=== PATIENT | female | born 1965 | race Caucasian/White ===

== ENCOUNTER → 2018-02-02 16:35 | Outpatient (CLI) | payer OTHER, SELFPAY ==
[2018-02-02 18:27] LABS: Anion Gap 6 (5-15); BUN 17 mg/dL (7-18); Calcium,Total 8.5 mg/dL (8.5-10.1); Chloride 105 mmol/L (98-107); EST Glomerular Filtration Rate 62 mL/min (>60); Est Glom Filt Rate - Afr Amer 75 mL/min (>60); Glucose 90 mg/dL (74-106); Potassium 3.6 mmol/L (3.5-5.1); Sodium Level 140 mmol/L (136-145)
== END ==
PROVIDERS: Family Provider Family Medicine; PCP Family Medicine; Visit Provider Family Medicine
DX: I10 Essential (primary) hypertension (principal)
CPT/HCPCS: 36415; 80048

== ENCOUNTER → 2018-05-10 16:10 | Outpatient (CLI) | payer OTHER, SELFPAY ==
[2018-05-10 18:01] LABS: AST(SGOT) 43 U/L (15-37); Alanine Aminotransfer ALT/SGPT 51 U/L (13-56); Anion Gap 8 (5-15); BUN 14 mg/dL (7-18); BUN/Creat Ratio 14.1 RATIO (10-20); Calcium,Total 8.6 mg/dL (8.5-10.1); Chloride 103 mmol/L (98-107); Cholesterol 153 mg/dL (200); Creatinine, Serum 0.99 mg/dL (0.55-1.02); EST Glomerular Filtration Rate 62 mL/min (>60); Est Glom Filt Rate - Afr Amer 75 mL/min (>60); Glucose 91 mg/dL (74-106); High Density Lipoprotein 42 mg/dL; Potassium 3.7 mmol/L (3.5-5.1); Sodium Level 141 mmol/L (136-145); Triglycerides 210 mg/dL; Very Low Density Lipoprotein 42 mg/dL (5-40)
[2018-05-14 11:39] LABS: HPV Reflexed? NOT INDICATED
== END ==
PROVIDERS: Family Provider Family Medicine; PCP Family Medicine; Visit Provider Family Medicine
DX: Z12.4 Encounter for screening for malignant neoplasm of cervix (principal); I10 Essential (primary) hypertension; E78.5 Hyperlipidemia, unspecified
CPT/HCPCS: 36415; 80048; 80061; 84450; 84460; 88175; G0145

== ENCOUNTER → 2018-05-29 09:38 | Outpatient (CLI) | payer OTHER, SELFPAY | PROVIDERS: Family Provider Family Medicine; PCP Family Medicine; Visit Provider Family Medicine | DX: Z12.31 Encounter for screening mammogram for malignant neoplasm of breast (principal) | CPT/HCPCS: 77063; 77067 ==

== ENCOUNTER → 2018-11-09 15:39 | Outpatient (CLI) | payer OTHER, SELFPAY ==
[2018-11-09 17:42] LABS: Anion Gap 11 (5-15); BUN 17 mg/dL (7-18); BUN/Creat Ratio 17.8 RATIO (10-20); Calcium,Total 8.7 mg/dL (8.5-10.1); Chloride 103 mmol/L (98-107); Creatinine, Serum 0.96 mg/dL (0.55-1.02); EST Glomerular Filtration Rate 65 mL/min (>60); Est Glom Filt Rate - Afr Amer 78 mL/min (>60); Glucose 86 mg/dL (74-106); Sodium Level 140 mmol/L (136-145)
== END ==
PROVIDERS: Family Provider Family Medicine; PCP Family Medicine; Visit Provider Family Medicine
DX: I10 Essential (primary) hypertension (principal)
CPT/HCPCS: 36415; 80048

== ENCOUNTER → 2019-05-11 | Outpatient (CLI) | payer OTHER, SELFPAY ==
[2019-05-11 12:48] LABS: AST(SGOT) 27 U/L (15-37); Alanine Aminotransfer ALT/SGPT 32 U/L (13-56); Anion Gap 6 (5-15); BUN 24 mg/dL (7-18); BUN/Creat Ratio 21.1 RATIO (10-20); Chloride 107 mmol/L (98-107); Cholesterol 167 mg/dL (200); Creatinine, Serum 1.14 mg/dL (0.55-1.02); EST Glomerular Filtration Rate 53 mL/min (>60); Est Glom Filt Rate - Afr Amer 64 mL/min (>60); Glucose 103 mg/dL (74-106); High Density Lipoprotein 41 mg/dL; Potassium 4.2 mmol/L (3.5-5.1); Sodium Level 141 mmol/L (136-145); Triglycerides 224 mg/dL; Very Low Density Lipoprotein 45 mg/dL (5-40)
== END | disposition home or self-care (01) ==
LOC: MFPLAB 10:02
PROVIDERS: Family Provider Family Medicine; PCP Family Medicine; Referring Provider Family Medicine; Visit Provider Family Medicine
DX: I10 Essential (primary) hypertension (principal); E78.00 Pure hypercholesterolemia, unspecified
CPT/HCPCS: 36415; 80048; 80061; 84450; 84460

== ENCOUNTER → 2020-04-10 11:58 | Outpatient (CLI) | payer OTHER, SELFPAY ==
[2020-04-10 15:35] LABS: AST(SGOT) 33 U/L (15-37); Alanine Aminotransfer ALT/SGPT 48 U/L (13-56); Anion Gap 6 (5-15); BUN 28 mg/dL (7-18); BUN/Creat Ratio 24.3 RATIO (10-20); Calcium,Total 8.7 mg/dL (8.5-10.1); Chloride 102 mmol/L (98-107); Cholesterol 174 mg/dL (200); Creatinine, Serum 1.15 mg/dL (0.55-1.02); EST Glomerular Filtration Rate 52 mL/min (>60); Est Glom Filt Rate - Afr Amer 63 mL/min (>60); Glucose 103 mg/dL (74-106); High Density Lipoprotein 38 mg/dL; Potassium 4.3 mmol/L (3.5-5.1); Sodium Level 138 mmol/L (136-145); Triglycerides 371 mg/dL; Very Low Density Lipoprotein 74 mg/dL (5-40)
== END ==
PROVIDERS: PCP Family Medicine; Referring Provider Family Medicine; Visit Provider Family Medicine
DX: E78.00 Pure hypercholesterolemia, unspecified (principal); I10 Essential (primary) hypertension
CPT/HCPCS: 36415; 80048; 80061; 84450; 84460

== ENCOUNTER → 2020-04-11 07:05 | Outpatient (CLI) | payer OTHER, SELFPAY ==
--- NOTE | 2020-04-11 07:07 | BI_ITS ---
MAMMOGRAPHY - BILATERAL SCREENING REASON FOR EXAM: Female, 55 years old. Routine annual screening examination. PERTINENT HISTORY: Aunts with breast cancer. TECHNIQUE: Digital bilateral breast jane (3D mammographic acquisition) in the CC and MLO projections. 2-D mediolateral oblique (MLO) and craniocaudad (CC) views of both breasts were obtained. CAD: Full Field Digital Mammography with Computer Added Detection was performed. COMPARISON: Comparison is made with prior study dated May 29, 2018. FINDINGS: Breast Composition: There are scattered areas of fibroglandular density. There are no dominant masses or suspicious calcifications. No other significant abnormalities are identified. There has been no significant change since the prior study. BI/SCREEN MAMM (CAD) W/JANE BILAT IMPRESSION: Stable bilateral screening mammogram. Yearly follow-up mammogram recommended. (A) ASSESSMENT CATEGORY: BIRADS Category 2: Benign. A letter regarding these results will be sent to the patient by the facility within 30 days. Approximately 10% of breast cancers are not detected by mammography. A normal mammogram should not delay biopsy of a clinically suspicious abnormality. [id number] Electronically Signed: Hadley Stapleton, at 8:33 EDT , Service support ,
== END ==
PROVIDERS: PCP Family Medicine; Referring Provider Family Medicine; Visit Provider Family Medicine
DX: Z12.31 Encounter for screening mammogram for malignant neoplasm of breast (principal)
CPT/HCPCS: 77063; 77067

== ENCOUNTER → 2020-10-15 10:07 | Outpatient (CLI) | payer OTHER, SELFPAY ==
[2020-10-15 12:55] LABS: Anion Gap 7 (5-15); BUN 21 mg/dL (7-18); BUN/Creat Ratio 20.8 RATIO (10-20); Calcium,Total 8.7 mg/dL (8.5-10.1); Chloride 107 mmol/L (98-107); Creatinine, Serum 1.01 mg/dL (0.55-1.02); EST Glomerular Filtration Rate 60 mL/min (>60); Est Glom Filt Rate - Afr Amer 73 mL/min (>60); Glucose 92 mg/dL (74-106); Potassium 3.7 mmol/L (3.5-5.1); Sodium Level 141 mmol/L (136-145)
== END ==
PROVIDERS: PCP Family Medicine; Referring Provider Family Medicine; Visit Provider Family Medicine
DX: I10 Essential (primary) hypertension (principal)
CPT/HCPCS: 36415; 80048

== ENCOUNTER → 2021-05-02 07:54 | Outpatient (CLI) | payer OTHER, SELFPAY ==
--- NOTE | 2021-05-02 07:58 | BI_ITS ---
MAMMOGRAPHY - BILATERAL SCREENING REASON FOR EXAM: Female, 56 years old. Routine annual screening examination. PERTINENT HISTORY: Aunts with breast cancer. TECHNIQUE: Digital bilateral breast jane (3D mammographic acquisition) in the CC and MLO projections. 2-D mediolateral oblique (MLO) and craniocaudad (CC) views of both breasts were obtained. CAD: Full Field Digital Mammography with Computer Added Detection was performed. COMPARISON: Comparison is made with prior study dated 04/11/2020 and 05/29/2018. FINDINGS: Breast Composition: The breasts are almost entirely fatty. There are no dominant masses or suspicious calcifications. Stable small benign-appearing bilateral axillary lymph nodes. No other significant abnormalities are identified. There has been no significant change since the prior study. BI/SCRN MAMM (CAD)W/JANE BILAT IMPRESSION: Stable bilateral screening mammogram. Yearly follow-up mammogram recommended. (A) ASSESSMENT CATEGORY: BIRADS Category 2: Benign. A letter regarding these results will be sent to the patient by the facility within 30 days. Approximately 10% of breast cancers are not detected by mammography. A normal mammogram should not delay biopsy of a clinically suspicious abnormality. [id number] Electronically Signed: Hadley Stapleton MD at 9:06 EDT , Service support ,
--- NOTE | 2021-05-02 08:18 | BD_ITS ---
STUDY: DUAL ENERGY X-RAY ABSORPTIOMETRY / DXA REASON FOR EXAM: Female, 56 years old. [id number]. The patient is postmenopausal. TECHNIQUE: Bone Mineral Density (BMD) measurements of lumbar spine and bilateral hips were obtained. COMPARISON: None. FINDINGS: Lumbar Spine (L1-L4): g/cm2 (1.050) / T-score (0.0) / Z-score (1.2) Findings are suggestive of normal bone density with a low fracture risk. Left Femur Total: g/cm2 (1.022) / T-score (0.7) / Z-score (1.4) Left Femoral Neck: g/cm2 (0.813) / T-score (-0.3) / Z-score (0.8) Right Femur Total: g/cm2 (1.081) / T-score (1.1) / Z-score (1.9) Right Femoral Neck: g/cm2 (0.789) / T-score (-0.5) / Z-score (0.6) BD/Dexa Bone Density Study IMPRESSION: The patient is considered normal as outlined below according to World Holden Organization (WHO) criteria with a low fracture risk. Reference Information: The T-score is the number of standard deviations above or below the standard which is normal for young adults at their peak bone mineral density. The World Health Organization (WHO) interprets the T-scores as follows: Above -1 Normal bone density Between -1 and -2.5 Osteopenia Equal to / or below -2.5 Osteoporosis As a practical clinical guideline, osteopenia may be graded as follows: Mild -1 through -1.5 Moderate -1.6 through -2.0 Severe -2.1 through -2.4 The Z-score is the number of standard deviations above or below age-matched controls. A Z-score of less than -1.5 would be considered abnormal. References: 1. NIH Osteoporosis and Related Bone Diseases www osteo.org 2. International Society for Clinical Densitometry www iscd.org 3. National Osteoporosis Foundation www nof.org Electronically Signed: Hadley Stapleton MD at 14:02 EDT , Service support ,
== END ==
PROVIDERS: PCP Family Medicine; Referring Provider Family Medicine; Visit Provider Family Medicine
DX: Z12.31 Encounter for screening mammogram for malignant neoplasm of breast (principal); N95.9 Unspecified menopausal and perimenopausal disorder
CPT/HCPCS: 77063; 77067; 77080

== ENCOUNTER → 2021-07-17 08:35 | Outpatient (CLI) | payer OTHER, SELFPAY ==
--- NOTE | 2021-07-17 12:45 | LES_PTH ---
PATIENT: SAAD ZAMBRANO LOC: [facility] U#:[id number] AGE/SX: 60/F ROOM: RE07/17/[address]: Dr. Natty Armas MD : 1965 BED: DIS: SPEC #: [id number] RECD: 07/17/21 18:03 STATUS: JIM LUIS #: [id number] QING: 07/17/21 12:[address]: Natty Armas DEPT: SURGICAL PATHOLOGY RECD BY: Pallavi aSnchez Tissues: Skin of back, NOS Procedures: Surgery Specimen Level IV HEADER OPERATION: Skin lesion biopsy PRE-OP DIAGNOSIS: Skin lesion TISSUE SUBMITTED: Skin lesion from right back MICROSCOPIC DIAGNOSIS Skin lesion right back, biopsy: Consistent with fragments of inflamed benign verrucous keratosis. Negative for malignancy. See comment. FELECIA:joselito 07/19/2021 COMMENT Clinical correlation and appropriate follow up are necessary. MICROSCOPIC DESCRIPTION Slides are reviewed. GROSS DESCRIPTION Received is one container labeled with the patient's name and not further designated. The specimen consists of two pieces of christiansen-white to christiansen-brown skin measuring 0.6 x 0.3 x 0.2 and 0.3 x 0.3 x 0.2 cm. The entire specimen is submitted in one cassette. / SJ:rg 07/18/21 TC:5 [facility]: [id number]
== END ==
PROVIDERS: PCP Family Medicine; Visit Provider Family Medicine
DX: L98.9 Disorder of the skin and subcutaneous tissue, unspecified (principal)
CPT/HCPCS: 88305

== ENCOUNTER 2021-11-23 09:24 | Outpatient (CLI) | payer OTHER, SELFPAY ==
--- NOTE | 2021-11-23 09:31 | US_ITS ---
STUDY: ULTRASOUND TRANSVAGINAL CLINICAL: Female, 56 years old. Postmenopausal bleeding. TECHNIQUE: Transvaginal COMPARISON: None. FINDINGS: The uterus is anteverted measuring about 8.9 x 4.5 x 3.5 cm and is tilted to the left side. There are no myometrial masses. There is thickening of the endometrium for a postmenopausal bleeding patient measuring about 11 mm. There is a hypoechoic area within the endometrium measures about 7 mm which may represent polyp. There are no endometrial masses, and there is no fluid in the endometrial cavity. Nabothian cyst is seen in the cervix. Both ovaries are not visualized. There is minimal free fluid in the cul-de-sac. US/Transvaginal Non- IMPRESSION: 1. Abnormal thickening of the endometrium for a postmenopausal bleeding patient with questionable hypoechoic nodule. [employer] consult is recommended. 2. Nonvisualization of both ovaries. 3. Nabothian cyst in the cervix. Electronically Signed: Devon Magallanes, at 10:17 [facility] ,
== END 2021-11-23 23:59 | disposition home or self-care (01) ==
PROVIDERS: PCP Family Medicine; Visit Provider Family Medicine
DX: N95.0 Postmenopausal bleeding (principal)
CPT/HCPCS: 76830

== ENCOUNTER 2021-12-24 09:40 | Outpatient (CLI) | payer OTHER, SELFPAY ==
--- NOTE | 2021-12-24 | EMB_PTH ---
PATIENT: SAAD ZAMBRANO LOC: [facility] U#:[id number] AGE/SX: 56/F ROOM: RE12/24/[address]: Dr. Eliecer Lemon MD : 1965 BED: DIS: 12/24/2021 SPEC #: [id number] RECD: 12/24/21 10:49 STATUS: JIM RERenzo #: [id number] QING: 12/24/21 00:[address]: Eliecer Lemon DEPT: SURGICAL PATHOLOGY RECD BY: Pallavi Sanchez ENTERED: 12/24/21 11:05 SP TYPE: ENDOM BX/C CHARLA DR: Dr. Natty Armas MD Tissues: Endometrium, NOS Procedures: Surgery Specimen Level IV HEADER OPERATION: Endometrial biopsy PRE-OP DIAGNOSIS: Postmenopausal bleeding TISSUE SUBMITTED: Endometrial biopsy MICROSCOPIC DIAGNOSIS Endometrium, biopsy: Endometrial adenocarcinoma, endometrioid type, FIGO grade I. AM:joselito 12/25/2021 COMMENT Immunohistochemistry ([id number]) for microsatellite instability (mismatch repair of protein) will be performed and the results will be reported separately. Case has been reviewed in consultation with Dr. Charles who concurs with the above diagnosis. IDC:SJ MICROSCOPIC DESCRIPTION Slides are reviewed. GROSS DESCRIPTION Received in fixative is one container labeled with the patient's name and designated endometrial biopsy. The specimen consists of multiple fragments of pink hemorrhagic soft tissue that in aggregate measure 2.5 x 2 x 0.2 cm. The specimen is totally submitted in one cassette. / FELECIA:joselito 12/24/2021 TC:0 CPT: 05606
--- NOTE | 2021-12-24 | IMM_PTH ---
PATIENT: SAAD ZAMBRANO LOC: [facility] U#:[id number] AGE/SX: 56/F ROOM: RE12/24/[address]: Dr. Eliecer Lemon MD : 1965 BED: DIS: 12/24/2021 SPEC #: [id number] RECD: 12/26/21 14:26 STATUS: JIM REQ #: [id number] QING: 12/24/21 00:[address]: Eliecer Lemon DEPT: IMMUNOHISTOCHEMISTRY RECD BY: Rosemarie Roche ENTERED: 12/26/21 14:27 SP TYPE: IMMUNO OTHR DR: Dr. Natty Armas MD Tissues: Endometrium, NOS Procedures: MSH2 (add) MLH-1 (add) MSH6 (add) Anti-PMS2 (add) KI-67 (add) P53 (add) HER-2-GWENDOLYN (initial) PHYSICIAN & INSTITUTION [place] [id number] SPECIMEN INFORMATION: Tissue Source: Endometrial biopsy Clinical Info: Postmenopausal bleeding Specimen Number: [id number] CPT code: 15325, 41907 x6 METHODOLOGY: Deparaffinized sections of prefer/formalin-fixed tissue or PAP/DQ stained slides are incubated with monoclonal/polyclonal antibodies/oligonucleotide probes. Localization is made via biotin free immunoperoxidase method. Appropriate controls are performed and reacted as expected. Results on target cell population are indicated in the following table: RESULTS: ANTIBODY / CLONE RESULT Ki-67 (30-9) positive, moderate to high P53 (DO-7) positive, rare cells, weak MLH-1 (M1) positive MSH2 (25D12) positive MSH6 (44) positive PMS2 (BWG5329) positive Her-2neu (CB11) negative (0) These tests were developed and their performance characteristics determined by [facility]. They may not have been cleared or approved by the U.S. Food and Drug Administration. The FDA has determined that such clearance or approval is not necessary. The above immunohistochemical/dualISH markers are ordered and reviewed by the Pathologist. INTERPRETATION: Endometrial biopsy: Endometrial adenocarcinoma. Result of Microsatellite Instability Study: Negative (no loss of mismatch protein; no microsatellite instability detected). FELECIA:joselito 12/27/2021
== END 2021-12-24 23:59 | disposition home or self-care (01) ==
LOC: WOBLAB 09:40
PROVIDERS: PCP Family Medicine; Visit Provider Obstetrics & Gynecology
DX: C54.1 Malignant neoplasm of endometrium (principal)
CPT/HCPCS: 88305; 88341; 88342

== ENCOUNTER 2022-01-01 11:34 | Outpatient (CLI) | payer OTHER, SELFPAY ==
[2022-01-01 15:38] LABS: AST(SGOT) 25 U/L (15-37); Alanine Aminotransfer ALT/SGPT 30 U/L (13-56); Anion Gap 5 (5-15); BUN 20 mg/dL (7-18); BUN/Creat Ratio 22.7 RATIO (10-20); Calcium,Total 9.2 mg/dL (8.5-10.1); Chloride 106 mmol/L (98-107); Cholesterol 180 mg/dL (200); Creatinine, Serum 0.88 mg/dL (0.55-1.02); EST Glomerular Filtration Rate 70 mL/min (>60); Est Glom Filt Rate - Afr Amer 85 mL/min (>60); Glucose 85 mg/dL (74-106); High Density Lipoprotein 46 mg/dL; Potassium 4.5 mmol/L (3.5-5.1); Sodium Level 139 mmol/L (136-145); Triglycerides 250 mg/dL; Very Low Density Lipoprotein 50 mg/dL (5-40)
== END 2022-01-01 23:59 | disposition home or self-care (01) ==
LOC: MFPLAB 11:35
PROVIDERS: PCP Family Medicine; Referring Provider Family Medicine; Visit Provider Family Medicine
DX: E78.00 Pure hypercholesterolemia, unspecified (principal); I10 Essential (primary) hypertension
CPT/HCPCS: 36415; 80048; 80061; 84450; 84460

== ENCOUNTER → 2022-06-30 | Outpatient (CLI) | payer OTHER, SELFPAY ==
[2022-06-30 17:47] LABS: Absolute Neutrophil Count 3.3 X10^3/uL (2.0-7.7); Basophil# 0.04 X10^3/uL; Basophil% 0.7 % (0-1); Eosinophil# 0.24 X10^3/uL; Eosinophils% 3.9 % (0-5); Hematocrit 34.8 % (37-47); Hemoglobin 11.1 g/dL (12.0-15.0); Lymphocyte % 32.6 % (19-41); Mean Corp Hgb Conc 31.9 g/dL (32-36); Mean Corpuscular Hgb 28.6 pg (27.0-32.0); Mean Corpuscular Volume 89.7 fL (81-99); Mean Platelet Vol. 9.5 fl (6.2-12.0); Monocyte# 0.51 X10^3/uL; Monocyte% 8.3 % (0-10); NRBC Flagged by Analyzer 0 % (0-5); Neutrophil # 3.33 X10^3/uL (2.7-7.7); Neutrophil % 54.2 % (47-70); Platelet Count 300 K/mm3 (150-450); RBC Distribution Width CV 16.2 % (11.6-14.6); RBC Distribution Width SD 53.5 fl (35.1-43.9); Red Blood Count 3.88 M/mm3 (4.2-5.4); White Blood Count 6.1 K/mm3 (4.4-11.0)
[2022-06-30 18:17] LABS: Microalbumin,Random Urine 5.4 mg/L (NO RANGE EST.); Microalbumin:Creatinine Ratio 9.9 mg/g CRE (<30 mg/g CRE)
[2022-06-30 18:30] LABS: Anion Gap 9 (5-15); BUN 15 mg/dL (7-18); Calcium,Total 9.3 mg/dL (8.5-10.1); Chloride 103 mmol/L (98-107); Cholesterol 166 mg/dL (200); EST Glomerular Filtration Rate 61 mL/min (>60); Est Glom Filt Rate - Afr Amer 74 mL/min (>60); Glucose 97 mg/dL (74-106); High Density Lipoprotein 47 mg/dL; Iron 73 ug/dL (50-170); Potassium 4.2 mmol/L (3.5-5.1); Sodium Level 139 mmol/L (136-145); Thyroid Stim Hormone (TSH) 2.57 uIU/mL (0.358-3.74); Triglycerides 223 mg/dL; Very Low Density Lipoprotein 45 mg/dL (5-40)
== END | disposition home or self-care (01) ==
LOC: MFPLAB 16:36
PROVIDERS: PCP Family Medicine; Referring Provider Family Medicine; Visit Provider Family Medicine
DX: D64.9 Anemia, unspecified (principal); R53.83 Other fatigue; I10 Essential (primary) hypertension
CPT/HCPCS: 36415; 80048; 80061; 82043; 82570; 83540; 84443; 85025

== ENCOUNTER → 2022-07-17 | Outpatient (CLI) | payer OTHER, SELFPAY ==
--- NOTE | 2022-07-17 07:10 | BI_ITS ---
MAMMOGRAPHY - BILATERAL SCREENING REASON FOR EXAM: Female, 57 years old. Routine annual screening examination. PERTINENT HISTORY: Aunts with breast cancer. TECHNIQUE: Digital bilateral breast jane (3D mammographic acquisition) in the CC and MLO projections. 2-D mediolateral oblique (MLO) and craniocaudad (CC) views of both breasts were obtained. CAD: Full Field Digital Mammography with Computer Added Detection was performed. COMPARISON: Comparison is made with prior study dated 05/02/2021 and 04/11/2020. FINDINGS: Breast Composition: The breasts are almost entirely fatty. There are no dominant masses or suspicious calcifications. No other significant abnormalities are identified. There has been no significant change since the prior study. BI/SCRN MAMM (CAD)W/JANE BILAT IMPRESSION: Stable bilateral screening mammogram. Yearly follow-up mammogram recommended. (A) ASSESSMENT CATEGORY: BIRADS Category 1: Negative. A letter regarding these results will be sent to the patient by the facility within 30 days. Approximately 10% of breast cancers are not detected by mammography. A normal mammogram should not delay biopsy of a clinically suspicious abnormality. [id number] Electronically Signed: Haldey Stapleton MD at 8:25 EDT ,
== END | disposition home or self-care (01) ==
PROVIDERS: PCP Family Medicine; Visit Provider Obstetrics & Gynecology
DX: Z12.31 Encounter for screening mammogram for malignant neoplasm of breast (principal); Z80.3 Family history of malignant neoplasm of breast
CPT/HCPCS: 77063; 77067

== ENCOUNTER → 2023-06-29 | Outpatient (CLI) | payer OTHER, SELFPAY ==
[2023-06-29 18:07] LABS: AST(SGOT) 21 U/L (15-37); Alanine Aminotransfer ALT/SGPT 25 U/L (13-56); Anion Gap 4 (5-15); BUN 21 mg/dL (7-18); BUN/Creat Ratio 19.6 RATIO (10-20); Calcium,Total 8.9 mg/dL (8.5-10.1); Chloride 104 mmol/L (98-107); Cholesterol 138 mg/dL (200); Creatinine, Serum 1.07 mg/dL (0.55-1.02); EST Glomerular Filtration Rate 56 mL/min (>60); Est Glom Filt Rate - Afr Amer 68 mL/min (>60); Glucose 98 mg/dL (74-106); High Density Lipoprotein 43 mg/dL; Potassium 3.9 mmol/L (3.5-5.1); Sodium Level 138 mmol/L (136-145); Triglycerides 263 mg/dL; Very Low Density Lipoprotein 53 mg/dL (5-40)
== END | disposition home or self-care (01) ==
PROVIDERS: PCP Family Medicine; Referring Provider Family Medicine; Visit Provider Family Medicine
DX: I10 Essential (primary) hypertension (principal); E78.00 Pure hypercholesterolemia, unspecified
CPT/HCPCS: 36415; 80048; 80061; 84450; 84460

== ENCOUNTER → 2024-02-11 | Outpatient (CLI) | payer BC, SELFPAY ==
--- NOTE | 2024-02-11 14:54 | CT_ITS ---
STUDY: CT ABDOMEN WITH CONTRAST REASON FOR EXAM: Female, 59 years old. Epigastric fullness. RADIATION DOSAGE (If Supplied By Facility): CTDIvol = ( 15.78 ) mGy, DLP = ( 869.62 ) mGycm TECHNIQUE: Transaxial images were obtained post I.V. administration of Oral and amp; IV Redi-CAT and amp; 100mL Isovue-300, and oral contrast. Sagittal and coronal images were reconstructed. Individualized dose optimization techniques were used for this CT. COMPARISON: None. FINDINGS: The visualized lung bases are unremarkable. The visualized portions of the heart are within normal limits. Normal liver. There is a 2 cm x 2.2 cm solitary gallstone in the contracted gallbladder. Normal spleen. Normal pancreas. Normal bilateral adrenal glands. Normal right kidney. Normal left kidney. There is a small hiatal hernia. Normal small intestine. Normal colon. The appendix is visualized and appears normal. Normal abdominal aorta. Normal inferior vena cava. Normal retroperitoneum. The patient is status post hysterectomy. There is evidence of a midline ventral hernia at the level of the umbilicus. This contains a nondistended portion of the transverse colon. Spondylosis at the T10-T11 and T11-T12 level. CT/Abdomen WITH IV Contrast IMPRESSION: Midline ventral hernia at the level the umbilicus containing a nondistended portion of the transverse colon. 2 cm x 2.2 cm solitary gallstone in the contracted gallbladder. Electronically Signed: Hadley Stapleton MD at 11:09 EDT ,
[2024-02-11 15:30] LABS: CREATININE FINGERSTICK 1.1 mg/dL (0.55-1.02)
== END | disposition home or self-care (01) ==
LOC: CT 14:48
PROVIDERS: PCP Family Medicine; Referring Provider Family Medicine; Visit Provider Family Medicine
DX: R19.06 Epigastric swelling, mass or lump (principal)
CPT/HCPCS: 74160; Q9967

== ENCOUNTER → 2024-03-09 | Outpatient (CLI) | payer BC, SELFPAY ==
--- NOTE | 2024-03-09 07:42 | BI_ITS ---
MAMMOGRAPHY - BILATERAL SCREENING REASON FOR EXAM: Female, 59 years old. Routine annual screening examination. PERTINENT HISTORY: Aunts with breast cancer. TECHNIQUE: Digital bilateral breast jane (3D mammographic acquisition) in the CC and MLO projections. 2-D mediolateral oblique (MLO) and craniocaudad (CC) views of both breasts were obtained. CAD: Full Field Digital Mammography with Computer Added Detection was performed. COMPARISON: Comparison is made with prior study July 17, 2022 and May 02, 2021. FINDINGS: Breast Composition: The breasts are almost entirely fatty. There are no dominant masses or suspicious calcifications. No other significant abnormalities are identified. There has been no significant change since the prior study. BI/SCRN MAMM (CAD)W/JANE BILAT IMPRESSION: Stable bilateral screening mammogram. Yearly follow-up mammogram recommended. (A) ASSESSMENT CATEGORY: BIRADS Category 1: Negative. A letter regarding these results will be sent to the patient by the facility within 30 days. Approximately 10% of breast cancers are not detected by mammography. A normal mammogram should not delay biopsy of a clinically suspicious abnormality. [id number] Electronically Signed: Hadley Stapleton MD at 8:51 EDT ,
== END | disposition home or self-care (01) ==
PROVIDERS: PCP Family Medicine
DX: Z12.31 Encounter for screening mammogram for malignant neoplasm of breast (principal); Z80.3 Family history of malignant neoplasm of breast
CPT/HCPCS: 77063; 77067

== ENCOUNTER → 2024-08-02 | Outpatient (CLI) | payer BC, SELFPAY ==
[2024-08-02 18:53] LABS: AST(SGOT) 22 U/L (15-37); Alanine Aminotransfer ALT/SGPT 24 U/L (13-56); Anion Gap 5 (5-15); BUN 20 mg/dL (7-18); BUN/Creat Ratio 20.7 RATIO (10-20); Calcium,Total 9.4 mg/dL (8.5-10.1); Chloride 103 mmol/L (98-107); Cholesterol 183 mg/dL (200); Creatinine, Serum 0.97 mg/dL (0.55-1.02); EST Glomerular Filtration Rate 63 mL/min (>60); Est Glom Filt Rate - Afr Amer 76 mL/min (>60); Glucose 97 mg/dL (74-106); High Density Lipoprotein 56 mg/dL; Potassium 3.9 mmol/L (3.5-5.1); Sodium Level 135 mmol/L (136-145); Triglycerides 310 mg/dL; Very Low Density Lipoprotein 62 mg/dL (5-40)
[2024-08-02 21:07] LABS: Protein, Urine (Random) 13.7 mg/dL (<11.9); Protein:Creat Ratio 256 mg/g CRE (0-200)
== END | disposition home or self-care (01) ==
PROVIDERS: PCP Family Medicine; Referring Provider Family Medicine; Visit Provider Family Medicine
DX: E78.00 Pure hypercholesterolemia, unspecified (principal); I10 Essential (primary) hypertension
CPT/HCPCS: 36415; 80048; 80061; 82570; 84156; 84450; 84460

== ENCOUNTER → 2025-03-14 | Outpatient (CLI) | payer BC, SELFPAY ==
--- NOTE | 2025-03-14 07:28 | BI_ITS ---
EXAM: SCRN MAMM (CAD)W/JANE BILAT DATE: 03/14/2025 CLINICAL HISTORY: F, Age 60 y/o , SCREENING Aunts with breast cancer. BREAST CANCER RISK ASSESSMENT: Not assessed TECHNIQUE: Bilateral screening digital breast tomosynthesis with 2D and 3D images. Computer aided detection. COMPARISON: Prior exam(s) dated March 09, 2024. FINDINGS: TISSUE DENSITY: The breast tissue is almost entirely fatty. Bilateral Breast Mammographic Findings: No significant masses, calcifications or other abnormalities are identified. No suspicious masses, areas of developing architectural distortion, or suspicious calcifications. There has been no significant interval change. BI/SCRN MAMM (CAD)W/JANE BILAT IMPRESSION: OVERALL FINAL ASSESSMENT: BIRADS 1 NEGATIVE RECOMMENDATION: Routine annual follow-up in 1 Year A letter with findings and recommendations will be mailed to the patient. Reading Location: [place] [address]
--- OUTSIDE RECORDS SUMMARY | 2025-03-14 07:29 | XMS RPT_ITS | CCD ---
Author Organization [facility] Inform ion Partnership [facility] Care Team Providers Care Sba Business Development Officer Name Role Phone XUAN RODRIGUEZ, DR ENCISO Primary Care Physician DORA RODRIGUEZ, ANA Attending Shirley ARMAS MD, DR ENCISO Primary Care Unavailable VINAY OLSON-JESSICA, FRANCISCO Attending Shirley ARMAS MD, DR ENCISO Primary Care Unavailable WINTER RODRIGUEZ, CELINA Attending Luz Elena ARMAS MD, DR ENCISO Primary Care Unavailable Natty Armas Primary Care Unavailable Natty Armas Attending Unavailable Natty Armas Referring Unavailable Dyana SHEEP FARM MANAGER, Ana Attending Luz Elena Turpin SHEEP FARM MANAGER, Ana Referring Unavailable Natty Armas Primary Care Unavailable Allergies Allergy Classification Reported Allergen(s) Allergy Type Date of Onset Reaction(s) Facility (12 sources) Atenolol; Translations: [atenolol] Drug Allergy 4 Dyspnea (finding) [facility] Work Phone: (1 source) Atenolol Drug Allergy 4 [facility] Repository Medications Current Medications Medication Drug Class(es) Dates Sig (Normalized) Sig (Original) acetaminophen 325 mg / HYDROcodone bitartrate 5 mg oral tablet (5 sources) Opioid Agonist Start: 05-16-2014 take 1 tablet by mouth every six hours as needed Hydrocodone-Acet aminophen Active 1 - 2 TABLET PO EVERY 6 HOURS NEEDED May 16, 2014 12:00am aspirin 81 mg delayed release oral tablet (12 sources) Platelet Aggregation Inhibitor, Nonsteroidal Anti-inflammatory Drug Start: 06-24-2018 aspirin 81 mg oral delayed release tablet Dose : 81 mg = 1 tab(s), Oral, Daily, 0 Refill(s) Start Date: 06/24/18 Status: Ordered Start: 04-17-2014 take 81 mg by mouth once daily Aspirin Active 81 MG PO DAILY@0800 April 17, 2014 12:00am atorvastatin 20 mg oral tablet (7 sources) HMG-CoA Reductase Inhibitor Start: 01-17-2022 atorvastatin 20 mg oral tablet Dose : 20 mg = 1 tab(s), Oral, qHS Start Date: 01/17/22 Status: Ordered Start: 06-24-2018 atorvastatin 2 0 mg oral tablet Dose : 20 mg = 1 tab(s), Oral, qDay, 0 Refill(s) Start Date: 06/24/18 Status: Ordered Biotin (7 sources) Start: 01-17-2022 take 1 capsule by mo [facility] once daily Biotin 5000 mcg oral capsule Dose : 10 mg =, Oral, qDay Start Date: 01/17/22 Status: Ordered Start: 06-28-2018 biotin Oral, q Day, 0 Refill(s) Start Date: 06/28/18 Status: Ordered docusate sodium 100 mg oral capsule (6 sources) Start: 05-16-2014 take 1 capsule by mouth twice daily as needed Docusate Sodium (Colace) 100 MG capsule Active 100 MG PO TWICE DAILY NEEDED May 16, 2014 12:00am hydroCHLOROthiazide 12.5 mg oral capsule (12 sources) Thiazide Diuretic Start: 04-17-2014 hydroCHLOROthiazide 12.5 mg oral capsule Dose : 12.5 mg = 1 cap(s), Oral, qDay, 0 Refill(s) Start Date: 06/24/18 Status: Ordered ibuprofen 600 mg oral tablet (1 source) Nonsteroidal Anti-inflammator y Drug Start: 01-30-2022 IBU 600 mg oral tablet Dose : 600 mg = 1 tab(s), Oral, q6h, # 40 tab(s), 0 Refill(s), Pharmacy: [id number], 160, cm, 01/28/22 19:52:00 EDT, Height Start Date: 01/30/22 Status: Ordered lisinopril 20 mg oral tablet (7 sources) Angiotensin Converting Enzyme Inhibitor Start: 01-17-2022 lisinopril 20 mg oral tablet Dose : 20 mg = 1 tab(s), Oral, qDay, # 90 tab(s), 0 Refill(s) Start Date: 01/17/22 Status: Ordered Start: 06-28-2018 take 1 dose by mouth once mark y lisinopril Dose : 20 mg =, Oral, qDay, 0 Refill(s) Start Date: 06/28/18 Status: Ordered oxyCODONE hydrochloride 5 mg oral tablet (1 source) Opioid Agonist Start: 01-30-2022 End: 02-04-2022 oxyCODONE 5 mg oral tablet ( IMMEDIATE release ) Dose : 5 mg = 1 tab(s), Oral, q4h, PRN as needed for pain, X 5 day(s), # 28 tab(s), 0 Refill(s), 02/04/22 9:35:00 EDT, Pharmacy: [facility], Post-op pain, 160, cm, 01/28/22 19:52:00 EDT, Height, 137.4 Start Date: 01/30/22 Stop Date: 02/04/22 Status: Ordered promethazine hydrochloride 25 mg oral tablet (5 sources) Phenothiazine Start: 05-16-2014 take 25 mg by mouth every four hours as needed Promethazine Active 25 MG PO EVERY 4 HOURS NEEDED May 16, 2014 12:00am sulfamethoxazole 800 mg / trimethoprim 160 mg oral tablet (1 source) Dihydrofolate Reductase Inhibitor Antibacterial, Sulfonamide Antimicrobial Start: 01-31-2022 End: 02-14-2022 take 1 tablet by mouth every twelve hours Bactrim DS 800 mg-160 mg oral tablet Dose = 1 tab(s), Oral, q12h, X 14 day(s), # 28 tab(s), 0 Refill(s), Pharmacy: [facility], 160, cm, 01/28/22 19:52:00 EDT, Height, 137.4 Start Date: 01/31/22 Stop Date: 02/14/22 Status: Ordered Completed/Discontinued Medications Medication Drug Class(es) Dates Sig (Normalized) Sig (Original) 0.4 ml enoxaparin sodium 100 mg/ml prefilled syringe (1 source) Low Molecular Weight Heparin Start: 01-31-2022 End: 02-12-2022 inject 0.4 mL by subcutaneous injection every twelve hours Lovenox 40 mg/0.4 mL injectable solution Dose : 40 mg = 0.4 mL, Subcutaneous, q12h, X 12 day(s), # 9.6 mL, 0 Refill(s), 02/12/22 12:30:00 EDT, Pharmacy: [id number], 160, cm, 01/28/22 19:52:00 EDT, Height Start Date: 01/31/22 Stop Date: 02/12/22 Status: Ordered Problems Active Problems Problem Classification Problem Date Documented Da te Episodic/Chronic Cancer of uterus (9 sources) Malignant neoplasm of endometrium of corpus uteri ; Translations: [Malignant neoplasm of endometrium] Onset: 01-28-2022 01-09-2022 Chronic Disorders of lipid metabolism (10 sources) Hypercholesterolemi a; Translations: [Pure hypercholesterolemi a] Onset: 01-28-2022 06-24-2018 Chronic Essential hypertension (9 sources) Hypertensive disorder; Translations: [Essential hypertension] Onset: 01-28-2022 06-24-2018 Chronic Other nutritional; endocrine; and metabolic disorders (3 sources) Excess panniculus of abdomen 01-09-2022 Chronic Other nutritional; endocrine; and metabolic disorders (9 sources) Morbid obesity; Translations: [Morbid (severe) obesity due to excess calories] Onset: 01-28-2022 06-24-2018 Chronic Other nutritional; endocrine; and metabolic disorders (1 source) Hypocalcemia; Translations: [Hypocalcemia] Onset: 01-30-2022 Chronic Other nutritional; endocrine; and metabolic disorders (2 sources) Localized adiposity; Translations: [Localized adiposity] Onset: 01-28-2022 Chronic Other nutritional; endocrine; and metabolic disorders (1 source) Body mass index 40+ - severely obese; Translations: [Body mass index (BMI) 50.0-59.9, adult] Chronic Other screening for suspected conditions (not mental disorders or infectious disease) (1 source) Encounter for other screening for malignant neoplasm of breast; Translations: [Encounter for other screening for malignant neoplasm of breast] Onset: 03-08-2025 Episodic Residual codes; unclassified (1 source) Asymptomatic menopausal state; Translations: [Asymptomatic menopausal state] Onset: 03-08-2025 Episodic Unclassified (7 sources) Patient encounter status 06-07-2022 Past or Other Problems Problem Classification Problem Date Documented Da te Episodic/Chronic Other aftercare (2 sources) Encounter for follow-up examination after completed treatment for malignant neoplasm; Translations: [Encounter for follow-up examination after completed treatment for malignant neoplasm] Onset: 05-07-2023 Episodic Results Test Name Value Interpretation Reference Range Facility AST(SGOT)on 08-02-2024 AST [Catalytic activity/Vol] 22 U/L Normal 15-37 [facility] Comment on above: Performed By: #### L 500.2500, L501.4100, L501.4405, L500.4100, L501.0900 #### [facility] [address] [place], [address] Alanine Aminotransferas (SGP T)on 08-02-2024 ALT [Catalytic activity/Vol] 24 U/L Normal 13-56 [facility] Comment on above: Performed By: #### L 500.2500, L501.4100, L501.4405, L500.4100, L501.0900 #### [facility] [address] [place], [address] Basic Metabolic Profile (BMP )on 08-02-2024 BUN/CRE 20.7 RATIO High 10-20 [facility] Comment on above: Performed By: #### L 500.2500, L501.4100, L501.4405, L500.4100, L501.0900 #### [facility] [address] [place], [address] CA,Total 9.4 mg/dL Normal 8.5-10.1 [facility] Comment on above: Performed By: #### L 500.2500, L501.4100, L501.4405, L500.4100, L501.0900 #### [facility] [address] [place], [address] Chloride [Moles/Vol] 103 mmol/L Normal 98-107 [facility] Comment on above: Performed By: #### L 500.2500, L501.4100, L501.4405, L500.4100, L501.0900 #### [facility] [address] [place], [address] CO2 [Moles/Vol] 27.0 mmol/L Normal 21.0-32.0 [facility] Comment on above: Performed By: #### L 500.2500, L501.4100, L501.4405, L500.4100, L501.0900 #### [facility] [address] [place], [address] Creatinine [Mass/Vol] 0.97 mg/dL Normal 0.55-1.02 [facility] Comment on above: Result Comment: The validity of the calculated GFR GFRAA in patients over 70 years has not been determined. Clinical correlation is essential. Performed By: #### L 500.2500, L501.4100, L501.4405, L500.4100, L501.0900 #### [facility] [address] [place], [address] EST GFR - AA 76 mL/min Normal >60 [facility] Comment on above: Result Comment: Afri can [place] GFR Calc Performed By: #### L 500.2500, L501.4100, L501.4405, L500.4100, L501.0900 #### [facility] [address] [place], [address] GAP 5 Normal 5-15 [facility] Comment on above: Performed By: #### L 500.2500, L501.4100, L501.4405, L500.4100, L501.0900 #### [facility] [address] [place], [address] GFR/1.73 sq M.predicted among non-blacks MDRD (S/P/Bld) [Vol rate/Area] 63 mL/min/{1.73_m2} Normal >60 [facility] Comment on above: Result Comment: Non- GFR Calc Performed By: #### L 500.2500, L501.4100, L501.4405, L500.4100, L501.0900 #### [facility] [address] [place], [address] Glucose [Mass/Vol] 97 mg/dL Normal 74-106 [facility] Comment on above: Performed By: #### L 500.2500, L501.4100, L501.4405, L500.4100, L501.0900 #### [facility] [address] [place], [address] Potassium [Moles/Vol] 3.9 mmol/L Normal 3.5-5.1 [facility] Comment on above: Performed By: #### L 500.2500, L501.4100, L501.4405, L500.4100, L501.0900 #### [facility] [address] [place], [address] Sodium [Moles/Vol] 135 mmol/L Low 136-145 [facility] Comment on above: Performed By: #### L 500.2500, L501.4100, L501.4405, L500.4100, L501.0900 #### [facility] [address] [place], [address] Urea nitrogen [Mass/Vol] 20 mg/dL High 7-18 [facility] Comment on above: Performed By: #### L 500.2500, L501.4100, L501.4405, L500.4100, L501.0900 #### [facility] [address] [place], [address] Lipid Profileon 08-02-2024 Cholesterol [Mass/Vol] 183 mg/dL Normal 200 [facility] Comment on above: Result Comment: <200 mg/dL Desirable 200-240 mg/dL Borderline >240 mg/dL High Risk Performed By: #### L 500.2500, L501.4100, L501.4405, L500.4100, L501.0900 #### [facility] [address] [place], [address] Cholesterol in HDL [Mass/Vol] 56 mg/dL Normal [facility] Comment on above: Result Comment: The drugs N-Acetylcysteine and Metamizole may falsely depress this assay. Reference Range HDL <40 mg/dL Low HDL Cholesterol HDL >or= 60 mg/dL High HDL Cholesterol Performed By: #### L 500.2500, L501.4100, L501.4405, L500.4100, L501.0900 #### [facility] [address] [place], [address] Cholesterol in LDL [Mass/Vol] 65 mg/dL Normal 0-130 [facility] Comment on above: Performed By: #### L 500.2500, L501.4100, L501.4405, L500.4100, L501.0900 #### [facility] [address] [place], [address] Cholesterol in VLDL [Mass/Vol] 62 mg/dL High 5-40 [facility] Comment on above: Performed By: #### L 500.2500, L501.4100, L501.4405, L500.4100, L501.0900 #### [facility] [address] [place], [address] Triglyceride [Mass/Vol] 310 mg/dL High [facility] Comment on above: Result Comment: The drugs N-Acetylcysteine and Metamizole may falsely depress this assay. Serum Triglycerides Reference Interval Normal <150 mg/dL Borderline high 150 - 199 mg/dL High 200 - 499 mg/dL Very High > or = 500 mg/dL Performed By: #### L 500.2500, L501.4100, L501.4405, L500.4100, L501.0900 #### [facility] [address] [place], [address] Protein+Creatinine Ratio,Uri neon 08-02-2024 PROT:CRE RATIO 256 mg/g CRE High 0-200 [facility] Comment on above: Performed By: #### L 500.2500, L501.4100, L501.4405, L500.4100, L501.0900 #### [facility] [address] [place], [address] Protein (U) [Mass/Vol] 13.7 mg/dL High <11.9 [facility] Comment on above: Performed By: #### L 500.2500, L501.4100, L501.4405, L500.4100, L501.0900 #### [facility] [address] [place], [address] UR CREAT 53.50 mg/dL Normal NO RANGE EST. [facility] Comment on above: Performed By: #### L 500.2500, L501.4100, L501.4405, L500.4100, L501.0900 #### [facility] [address] [place], [address] Basophil percentageOrdered B y: Natty Armas on 06-29-2023 Chloride [Moles/Vol] 104 mmol/L 98-107 [facility] Cholesterol [Mass/Vol] 138 mg/dL <200 [facility] Comment on above: <200 mg/dL Desirable 200-240 mg/dL Borderline >240 mg/dL High Risk Glucose [Mass/Vol] 98 mg/dL 74-106 [facility] Potassium [Moles/Vol] 3.9 mmol/L 3.5-5.1 [facility] Sodium [Moles/Vol] 138 mmol/L 136-145 [facility] Triglyceride [Mass/Vol] 263 mg/dL <199 [facility] Comment on above: The drugs N-Acetylcy steine and Metamizole may falsely depress this assay.Serum Triglycerides Reference Interval Normal <150 mg/dL Borderline high 150 - 199 mg/dL High 200 - 499 mg/dL Very High > or = 500 mg/dL Laboratory - Chemistry and C hemistry - challengeOrdered By: Natty Armas on 06-29-2023 ALT [Catalytic activity/Vol] 25 U/L 13-56 [facility] CO2 [Moles/Vol] 30.0 mmol/L 21.0-32.0 [facility] Urea nitrogen/Creatinine [Mass ratio] 19.6 mg/mg 10-20 [facility] No Panel InformationOrdered By: Natty Armas on 06-29-2023 Estimated GFR (MDRD) Amer 68 mL/min >60 [facility] Comment on above: GFR Calc Estimated GFR (MDRD) Non-Af Amer 56 mL/min >60 [facility] Comment on above: Non- GFR Calc Serum or plasma calcium raghu urement (mass/volume)Ordered By: Natty Armas on 06-29-2023 Calcium [Mass/Vol] 8.9 mg/dL 8.5-10.1 [facility] Serum or plasma cholesterol in HDL measurement (mass/volume)Ordered By: Natty Armas on 06-29-2023 Cholesterol in HDL [Mass/Vol] 43 mg/dL >40 [facility] Comment on above: The drugs N-Acetylcy steine and Metamizole may falsely depress this assay. Reference Range HDL <40 mg/dL Low HDL Cholesterol HDL >or= 60 mg/dL High HDL Cholesterol Serum or plasma cholesterol in VLDL measurement (mass/volume)Ordered By: Natty Armas on 06-29-2023 Cholesterol in VLDL [Mass/Vol] 53 mg/dL 5-40 [facility] Serum or plasma creatinine m easurement (mass/volume)Ordered By: Natty Armas on 06-29-2023 Creatinine [Mass/Vol] 1.07 mg/dL 0.55-1.02 [facility] Comment on above: The validity of the calculated GFR & GFRAA in patients over 70 years has not been determined. Clinical correlation is essential. Serum or plasma low density lipoprotein (LDL) cholesterol measurement (mass/volume)Ordered By: Natty Armas on 06-29-2023 Cholesterol in LDL [Mass/Vol] 42 mg/dL 0-130 [facility] Serum or plasma urea nitroge n measurement (mass/volume)Ordered By: Natty Armas on 06-29-2023 Urea nitrogen [Mass/Vol] 21 mg/dL 7-18 [facility] Thin prep Papanicolaou smear with manual screeningOrdered By: Natty Armas on 06-29-2023 Thin prep Papanicolaou smear with manual screening 21 U/L 15-37 [facility] Thin prep Papanicolaou smear with manual screening 4 5-15 [facility] Absolute lymphocyte counton 06-30-2022 Lymphocytes Auto (Unsp spec) [#/Vol] 2.00 10*3/uL 0.83-4.51 [facility] Work Phone: [phone] Basophil percentageon 2021 Basophils/100 WBC (Bld) 0.7 % 0-1 [facility] Work Phone: [phone] Chloride [Moles/Vol] 103 mmol/L 98-107 [facility] Work Phone: [phone] Cholesterol [Mass/Vol] 166 mg/dL <200 [facility] Work Phone: [phone] Comment on above: <200 mg/dL Desirable 200-240 mg/dL Borderline >240 mg/dL High Risk Eosinophils/100 WBC (Bld) 3.9 % 0-5 [facility] Work Phone: [phone] Glucose [Mass/Vol] 97 mg/dL 74-106 [facility] Work Phone: [phone] Neutrophils (Bld) [#/Vol] 3.3 10*3/uL 2.0-7.7 [facility] Work Phone: [phone] Neutrophils/100 WBC (Bld) 54.2 % 47-70 [facility] Work Phone: [phone] Potassium [Moles/Vol] 4.2 mmol/L 3.5-5.1 [facility] Work Phone: [phone] Sodium [Moles/Vol] 139 mmol/L 136-145 [facility] Work Phone: [phone] Triglyceride [Mass/Vol] 223 mg/dL <199 [facility] Work Phone: Comment on above: The drugs N-Acetylcy steine and Metamizole may falsely depress this assay.Serum Triglycerides Reference Interval Normal <150 mg/dL Borderline high 150 - 199 mg/dL High 200 - 499 mg/dL Very High > or = 500 mg/dL WBC (Bld) [#/Vol] 6.1 10*3/uL 4.4-11.0 [facility]: Blood erythrocytes count (nu mber/volume)on 06-30-2022 RBC (Bld) [#/Vol] 3.88 10*6/uL 4.2-5.4 [facility] Work Phone: Blood hemoglobin measurement (mass/volume)on 06-30-2022 Hemoglobin (Bld) [Mass/Vol] 11.1 g/dL 12.0-15.0 [facility] Work Phone: Blood lymphocytes/100 leukoc yteson 06-30-2022 Lymphocytes/100 WBC (Bld) 32.6 % 19-41 [facility] Work Phone: Blood monocytes/100 leukocyt eson 06-30-2022 Monocytes/100 WBC (Bld) 8.3 % 0-10 [facility] Work Phone: Blood platelet mean volumeon 06-30-2022 Platelet mean volume (Bld) [Entitic vol] 9.5 fL 6.2-12.0 [facility] Work Phone: Determination of erythrocyte mean corpuscular volume (MCV)on 06-30-2022 MCV (RBC) [Entitic vol] 89.7 fL 81-99 [facility] Work Phone: Hematocrit Auto (Bld) [Volum e fraction]on 06-30-2022 Hematocrit (Bld) [Volume fraction] 34.8 % 37-47 [facility] Work Phone: Iron measurement (mass/mass) on 06-30-2022 Iron (Unsp spec) [Mass/Mass] 73 ug/dL 50-170 [facility] Work Phone: Laboratory - Chemistry and C hemistry - challengeon 06-30-2022 CO2 [Moles/Vol] 27.0 mmol/L 21.0-32.0 [facility] Work Phone: Urea nitrogen/Creatinine [Mass ratio] 15.0 mg/mg 10-20 [facility] Work Phone: Laboratory - Hematology and Cell countson 06-30-2022 Erythrocyte distribution width (RBC) [Entitic vol] 53.5 fL 35.1-43.9 [facility] Work Phone: Erythrocyte distribution width (RBC) [Ratio] 16.2 % 11.6-14.6 [facility] Work Phone: Immature granulocytes/100 WBC (Bld) 0.300 % 0.0-0.9 [facility] Work Phone: Comment on above: IG% - Immature Granu locytes (promyelocytes, myelocytes and metamyelocytes) > 1% indicates that a LEFT SHIFT is Present. MCH (RBC) [Entitic mass] 28.6 pg 27.0-32.0 [facility] Work Phone: Nucleated RBC/100 WBC (Bld) [Ratio] 0 % 0-5 [facility] Work Phone: MCHC Auto (RBC) [Mass/Vol]on 06-30-2022 MCHC (RBC) [Mass/Vol] 31.9 g/dL 32-36 [facility] Work Phone: No Panel Informationon 06-30 Estimated GFR (MDRD) Amer 74 mL/min >60 [facility] Work Phone: Comment on above: GFR Calc Estimated GFR (MDRD) Non-Af Amer 61 mL/min >60 [facility] Work Phone: Comment on above: Non- GFR Calc Thyroid Stimulating Hormone (TSH) 2.57 uIU/mL 0.358-3.74 [facility] Work Phone: Urine Microalbumin/Creatinine Ratio 9.9 mg/g CRE <30 [facility] Work Phone: Platelets bldon 06-30-2022 Platelets (Bld) [#/Vol] 300 10*3/uL 150-450 [facility] Work Phone: Serum or plasma calcium raghu urement (mass/volume)on 06-30-2022 Calcium [Mass/Vol] 9.3 mg/dL 8.5-10.1 [facility] Work Phone: Serum or plasma cholesterol in HDL measurement (mass/volume)on 06-30-2022 Cholesterol in HDL [Mass/Vol] 47 mg/dL >40 [facility] Work Phone: Comment on above: The drugs N-Acetylcy steine and Metamizole may falsely depress this assay. Reference Range HDL <40 mg/dL Low HDL Cholesterol HDL >or= 60 mg/dL High HDL Cholesterol Serum or plasma cholesterol in VLDL measurement (mass/volume)on 06-30-2022 Cholesterol in VLDL [Mass/Vol] 45 mg/dL 5-40 [facility] Work Phone: Serum or plasma creatinine m easurement (mass/volume)on 06-30-2022 Creatinine [Mass/Vol] 1.00 mg/dL 0.55-1.02 [facility] Work Phone: Comment on above: The validity of the calculated GFR & GFRAA in patients over 70 years has not been determined. Clinical correlation is essential. Serum or plasma low density lipoprotein (LDL) cholesterol measurement (mass/volume)on 06-30-2022 Cholesterol in LDL [Mass/Vol] 74 mg/dL 0-130 [facility] Work Phone: Serum or plasma urea nitroge n measurement (mass/volume)on 06-30-2022 Urea nitrogen [Mass/Vol] 15 mg/dL 7-18 [facility] Work Phone: Thin prep Papanicolaou smear with manual screeningon 06-30-2022 Thin prep Papanicolaou smear with manual screening 9 5-15 [facility] Work Phone: Thin prep Papanicolaou smear with manual screening 5.4 mg/L NO RANGE EST. [facility] Work Phone: Urine creatinine measurement (mass/volume)on 06-30-2022 Creatinine (U) [Mass/Vol] 54.90 mg/dL NO RANGE EST. [facility] Work Phone: LABORATORYOrdered By: SYSTEM SYSTEM on 01-31-2022 Albumin BCP dye [Mass/Vol] 3.2 G/dL Invalid Interpretation Code 3.2 - 4.8 G/dL ADM SS Albumin/Globulin [Mass ratio] 1.3 {ratio} Invalid Interpretation Code 0.9 - 1.6 ratio AH ADM SS ALP [Catalytic activity/Vol] 64 U/L Invalid Interpretation Code 38 - 126 U/L AH ADM SS ALT No additional P-5'-P [Catalytic activity/Vol] 20 U/L Invalid Interpretation Code 10 - 49 U/L AH ADM SS AST [Catalytic activity/Vol] 39 U/L Invalid Interpretation Code 8 - 34 U/L AH ADM SS Basophils (Bld) [#/Vol] 0.00 103/mcL Invalid Interpretation Code 0.00 - 0.27 10^3/mcL AH Remisol SS Basophils/100 WBC (Bld) 0.3 % Invalid Interpretation Code 0.0 - 2.5 % AH Remisol SS Bilirubin [Mass/Vol] 0.60 mg/dL Invalid Interpretation Code 0.20 - 1.20 mg/dL AH ADM SS Calcium [Mass/Vol] 8.2 mg/dL Invalid Interpretation Code 8.7 - 10.4 mg/dL AH ADM SS Chloride [Moles/Vol] 108 mmol/L Invalid Interpretation Code 98 - 110 mEq/L AH ADM SS CO2 [Moles/Vol] 26 mmol/L Invalid Interpretation Code 22 - 32 mEq/L AH ADM SS Creatinine [Mass/Vol] 0.95 mg/dL Invalid Interpretation Code 0.50 - 1.20 mg/dL AH ADM SS Electrolyte Balance 7.0 mEq/L Invalid Interpretation Code 4.0 - 15.0 mEq/L AH ADM SS Eosinophils (Bld) [#/Vol] 0.20 103/mcL Invalid Interpretation Code 0.00 - 0.65 10^3/mcL AH Remisol SS Eosinophils/100 WBC (Bld) 1.7 % Invalid Interpretation Code 0.0 - 6.0 % AH Remisol SS Erythrocyte distribution width (RBC) [Ratio] 14.0 % Invalid Interpretation Code 11.5 - 15.5 % AH Remisol SS GFR/1.73 sq M.predicted among blacks MDRD (S/P/Bld) [Vol rate/Area] ml/min/1.73sqm Invalid Interpretation Code AH Chemistry S GFR/1.73 sq M.predicted among non-blacks MDRD (S/P/Bld) [Vol rate/Area] ml/min/1.73sqm Invalid Interpretation Code Chemistry S Globulin 2.5 G/dL Invalid Interpretation Code 1.5 - 3.8 G/dL AH ADM SS Glucose [Mass/Vol] 94 mg/dL Invalid Interpretation Code 70 - 110 mg/dL ADM SS Hematocrit (Bld) [Volume fraction] 24.6 % Invalid Interpretation Code 34.0 - 46.0 % AH Remisol SS Hemoglobin (Bld) [Mass/Vol] 8.4 G/dL Invalid Interpretation Code 12.0 - 16.0 G/dL AH Remisol SS Lymphocytes (Bld) [#/Vol] 1.90 103/mcL Invalid Interpretation Code 0.90 - 4.32 10^3/mcL AH Remisol SS Lymphocytes/100 WBC (Bld) 19.2 % Invalid Interpretation Code 20.0 - 40.0 % Remisol SS Magnesium [Mass/Vol] 1.8 mg/dL Invalid Interpretation Code 1.6 - 2.4 mg/dL AH ADM SS MCH (RBC) [Entitic mass] 30.8 pg Invalid Interpretation Code 27.0 - 33.0 pg AH Remisol SS MCHC (RBC) [Mass/Vol] 34.2 G/dL Invalid Interpretation Code 32.0 - 36.0 G/dL AH Remisol SS MCV (RBC) [Entitic vol] 90.1 fL Invalid Interpretation Code 80.0 - 99.0 fL AH Remisol SS Monocytes (Bld) [#/Vol] 0.70 103/mcL Invalid Interpretation Code 0.09 - 1.40 10^3/mcL AH Remisol SS Monocytes/100 WBC (Bld) 6.8 % Invalid Interpretation Code 2.0 - 13.0 % AH Remisol SS Neutrophils (Bld) [#/Vol] 7.30 103/mcL Invalid Interpretation Code 2.25 - 8.10 10^3/mcL AH Remisol SS Neutrophils/100 WBC (Bld) 72.0 % Invalid Interpretation Code 50.0 - 75.0 % AH Remisol SS Phosphate [Mass/Vol] 2.6 mg/dL Invalid Interpretation Code 2.4 - 5.1 mg/dL AH ADM SS Platelet mean volume (Bld) [Entitic vol] 7.5 fL Invalid Interpretation Code 6.6 - 10.5 fL AH Remisol SS Platelets (Bld) [#/Vol] 256 103/mcL Invalid Interpretation Code 150 - 450 10^3/mcL AH Remisol SS Potassium [Moles/Vol] 3.6 mmol/L Invalid Interpretation Code 3.5 - 5.0 mEq/L AH ADM SS Protein [Mass/Vol] 5.7 G/dL Invalid Interpretation Code 5.7 - 8.2 G/dL AH ADM SS RBC (Bld) [#/Vol] 2.73 106/mcL Invalid Interpretation Code 4.10 - 5.30 10^6/mcL AH Remisol SS Sodium [Moles/Vol] 141 mmol/L Invalid Interpretation Code 136 - 145 mEq/L AH ADM SS Urea nitrogen [Mass/Vol] 11.0 mg/dL Invalid Interpretation Code 8.0 - 22.0 mg/dL AH ADM SS Urea nitrogen/Creatinine [Mass ratio] 11.6 ratio Invalid Interpretation Code 10.0 - 22.0 ratio AH ADM SS WBC (Bld) [#/Vol] 10.10 103/mcL Invalid Interpretation Code 4.50 - 10.80 10^3/mcL AH Remisol SS LABORATORYOrdered By: Vianney Wiseman on 01-30-2022 RBC Product Ready RBC Ready for Pickup (01/30/22 8:37 AM) Invalid Interpretation Code BB Manual SS LABORATORYOrdered By: SYSTEM SYSTEM on 01-30-2022 Albumin BCP dye [Mass/Vol] 3.0 G/dL Invalid Interpretation Code 3.2 - 4.8 G/dL AH ADM SS Albumin/Globulin [Mass ratio] 1.2 {ratio} Invalid Interpretation Code 0.9 - 1.6 ratio AH ADM SS ALP [Catalytic activity/Vol] 49 U/L Invalid Interpretation Code 38 - 126 U/L AH ADM SS ALT No additional P-5'-P [Catalytic activity/Vol] 18 U/L Invalid Interpretation Code 10 - 49 U/L AH ADM SS AST [Catalytic activity/Vol] 35 U/L Invalid Interpretation Code 8 - 34 U/L AH ADM SS Basophils (Bld) [#/Vol] 0.00 103/mcL Invalid Interpretation Code 0.00 - 0.27 10^3/mcL AH Remisol SS Basophils/100 WBC (Bld) 0.3 % Invalid Interpretation Code 0.0 - 2.5 % AH Remisol SS Bilirubin [Mass/Vol] 0.40 mg/dL Invalid Interpretation Code 0.20 - 1.20 mg/dL AH ADM SS Calcium [Mass/Vol] 7.7 mg/dL Invalid Interpretation Code 8.7 - 10.4 mg/dL AH ADM SS Chloride [Moles/Vol] 107 mmol/L Invalid Interpretation Code 98 - 110 mEq/L AH ADM SS CO2 [Moles/Vol] 24 mmol/L Invalid Interpretation Code 22 - 32 mEq/L AH ADM SS Creatinine [Mass/Vol] 0.88 mg/dL Invalid Interpretation Code 0.50 - 1.20 mg/dL AH ADM SS Electrolyte Balance 6.0 mEq/L Invalid Interpretation Code 4.0 - 15.0 mEq/L AH ADM SS Eosinophils (Bld) [#/Vol] 0.10 103/mcL Invalid Interpretation Code 0.00 - 0.65 10^3/mcL AH Remisol SS Eosinophils/100 WBC (Bld) 0.7 % Invalid Interpretation Code 0.0 - 6.0 % AH Remisol SS Erythrocyte distribution width (RBC) [Ratio] 13.6 % Invalid Interpretation Code 11.5 - 15.5 % AH Remisol SS GFR/1.73 sq M.predicted among blacks MDRD (S/P/Bld) [Vol rate/Area] ml/min/1.73sqm Invalid Interpretation Code AH Chemistry S GFR/1.73 sq M.predicted among non-blacks MDRD (S/P/Bld) [Vol rate/Area] ml/min/1.73sqm Invalid Interpretation Code Chemistry S Globulin 2.4 G/dL Invalid Interpretation Code 1.5 - 3.8 G/dL AH ADM SS Glucose [Mass/Vol] 103 mg/dL Invalid Interpretation Code 70 - 110 mg/dL AH ADM SS Hematocrit (Bld) [Volume fraction] 21.1 % Invalid Interpretation Code 34.0 - 46.0 % AH Remisol SS Hemoglobin (Bld) [Mass/Vol] 7.1 G/dL Invalid Interpretation Code 12.0 - 16.0 G/dL AH Remisol SS Lymphocytes (Bld) [#/Vol] 2.10 103/mcL Invalid Interpretation Code 0.90 - 4.32 10^3/mcL AH Remisol SS Lymphocytes/100 WBC (Bld) 19.8 % Invalid Interpretation Code 20.0 - 40.0 % AH Remisol SS Magnesium [Mass/Vol] 1.8 mg/dL Invalid Interpretation Code 1.6 - 2.4 mg/dL AH ADM SS MCH (RBC) [Entitic mass] 30.7 pg Invalid Interpretation Code 27.0 - 33.0 pg AH Remisol SS MCHC (RBC) [Mass/Vol] 33.8 G/dL Invalid Interpretation Code 32.0 - 36.0 G/dL AH Remisol SS MCV (RBC) [Entitic vol] 90.9 fL Invalid Interpretation Code 80.0 - 99.0 fL AH Remisol SS Monocytes (Bld) [#/Vol] 0.80 103/mcL Invalid Interpretation Code 0.09 - 1.40 10^3/mcL AH Remisol SS Monocytes/100 WBC (Bld) 7.9 % Invalid Interpretation Code 2.0 - 13.0 % AH Remisol SS Neutrophils (Bld) [#/Vol] 7.50 103/mcL Invalid Interpretation Code 2.25 - 8.10 10^3/mcL AH Remisol SS Neutrophils/100 WBC (Bld) 71.3 % Invalid Interpretation Code 50.0 - 75.0 % AH Remisol SS Phosphate [Mass/Vol] 3.1 mg/dL Invalid Interpretation Code 2.4 - 5.1 mg/dL AH ADM SS Platelet mean volume (Bld) [Entitic vol] 7.5 fL Invalid Interpretation Code 6.6 - 10.5 fL AH Remisol SS Platelets (Bld) [#/Vol] 228 103/mcL Invalid Interpretation Code 150 - 450 10^3/mcL AH Remisol SS Potassium [Moles/Vol] 4.3 mmol/L Invalid Interpretation Code 3.5 - 5.0 mEq/L AH ADM SS Comment on above: Result Comment: Spec imen slightly hemolyzed. Protein [Mass/Vol] 5.4 G/dL Invalid Interpretation Code 5.7 - 8.2 G/dL AH ADM SS RBC (Bld) [#/Vol] 2.32 106/mcL Invalid Interpretation Code 4.10 - 5.30 10^6/mcL AH Remisol SS Sodium [Moles/Vol] 137 mmol/L Invalid Interpretation Code 136 - 145 mEq/L AH ADM SS Urea nitrogen [Mass/Vol] 15.0 mg/dL Invalid Interpretation Code 8.0 - 22.0 mg/dL AH ADM SS Urea nitrogen/Creatinine [Mass ratio] 17.0 ratio Invalid Interpretation Code 10.0 - 22.0 ratio AH ADM SS WBC (Bld) [#/Vol] 10.50 103/mcL Invalid Interpretation Code 4.50 - 10.80 10^3/mcL AH Remisol SS LABORATORYOrdered By: SYSTEM SYSTEM on 01-29-2022 Albumin BCP dye [Mass/Vol] 3.3 G/dL Invalid Interpretation Code 3.2 - 4.8 G/dL AH ADM SS Albumin/Globulin [Mass ratio] 1.5 {ratio} Invalid Interpretation Code 0.9 - 1.6 ratio ADM SS ALP [Catalytic activity/Vol] 51 U/L Invalid Interpretation Code 38 - 126 U/L AH ADM SS ALT No additional P-5'-P [Catalytic activity/Vol] 18 U/L Invalid Interpretation Code 10 - 49 U/L AH ADM SS AST [Catalytic activity/Vol] 29 U/L Invalid Interpretation Code 8 - 34 U/L AH ADM SS Basophils (Bld) [#/Vol] 0.00 103/mcL Invalid Interpretation Code 0.00 - 0.27 10^3/mcL AH Remisol SS Basophils/100 WBC (Bld) 0.1 % Invalid Interpretation Code 0.0 - 2.5 % AH Remisol SS Bilirubin [Mass/Vol] 0.50 mg/dL Invalid Interpretation Code 0.20 - 1.20 mg/dL AH ADM SS Calcium [Mass/Vol] 8.2 mg/dL Invalid Interpretation Code 8.7 - 10.4 mg/dL AH ADM SS Chloride [Moles/Vol] 107 mmol/L Invalid Interpretation Code 98 - 110 mEq/L AH ADM SS CO2 [Moles/Vol] 25 mmol/L Invalid Interpretation Code 22 - 32 mEq/L AH ADM SS Creatinine [Mass/Vol] 1.01 mg/dL Invalid Interpretation Code 0.50 - 1.20 mg/dL AH ADM SS Electrolyte Balance 5.0 mEq/L Invalid Interpretation Code 4.0 - 15.0 mEq/L AH ADM SS Eosinophils (Bld) [#/Vol] 0.00 103/mcL Invalid Interpretation Code 0.00 - 0.65 10^3/mcL AH Remisol SS Eosinophils/100 WBC (Bld) 0.1 % Invalid Interpretation Code 0.0 - 6.0 % AH Remisol SS Erythrocyte distribution width (RBC) [Ratio] 13.6 % Invalid Interpretation Code 11.5 - 15.5 % AH Remisol SS GFR/1.73 sq M.predicted among blacks MDRD (S/P/Bld) [Vol rate/Area] ml/min/1.73sqm Invalid Interpretation Code Chemistry S GFR/1.73 sq M.predicted among non-blacks MDRD (S/P/Bld) [Vol rate/Area] 57 ml/min/1.73sqm Invalid Interpretation Code Chemistry S Globulin 2.2 G/dL Invalid Interpretation Code 1.5 - 3.8 G/dL ADM SS Glucose [Mass/Vol] 125 mg/dL Invalid Interpretation Code 70 - 110 mg/dL AH ADM SS Hematocrit (Bld) [Volume fraction] 24.7 % Invalid Interpretation Code 34.0 - 46.0 % AH Remisol SS Hemoglobin (Bld) [Mass/Vol] 8.2 G/dL Invalid Interpretation Code 12.0 - 16.0 G/dL AH Remisol SS Lymphocytes (Bld) [#/Vol] 1.00 103/mcL Invalid Interpretation Code 0.90 - 4.32 10^3/mcL AH Remisol SS Lymphocytes/100 WBC (Bld) 6.8 % Invalid Interpretation Code 20.0 - 40.0 % AH Remisol SS Magnesium [Mass/Vol] 1.8 mg/dL Invalid Interpretation Code 1.6 - 2.4 mg/dL AH ADM SS MCH (RBC) [Entitic mass] 30.0 pg Invalid Interpretation Code 27.0 - 33.0 pg AH Remisol SS MCHC (RBC) [Mass/Vol] 33.1 G/dL Invalid Interpretation Code 32.0 - 36.0 G/dL AH Remisol SS MCV (RBC) [Entitic vol] 90.8 fL Invalid Interpretation Code 80.0 - 99.0 fL AH Remisol SS Monocytes (Bld) [#/Vol] 0.90 103/mcL Invalid Interpretation Code 0.09 - 1.40 10^3/mcL AH Remisol SS Monocytes/100 WBC (Bld) 6.1 % Invalid Interpretation Code 2.0 - 13.0 % AH Remisol SS Neutrophils (Bld) [#/Vol] 12.80 103/mcL Invalid Interpretation Code 2.25 - 8.10 10^3/mcL AH Remisol SS Neutrophils/100 WBC (Bld) 86.9 % Invalid Interpretation Code 50.0 - 75.0 % AH Remisol SS Phosphate [Mass/Vol] 5.6 mg/dL Invalid Interpretation Code 2.4 - 5.1 mg/dL AH ADM SS Platelet mean volume (Bld) [Entitic vol] 8.1 fL Invalid Interpretation Code 6.6 - 10.5 fL AH Remisol SS Platelets (Bld) [#/Vol] 259 103/mcL Invalid Interpretation Code 150 - 450 10^3/mcL AH Remisol SS Potassium [Moles/Vol] 5.2 mmol/L Invalid Interpretation Code 3.5 - 5.0 mEq/L AH ADM SS Comment on above: Result Comment: Spec imen slightly hemolyzed. Protein [Mass/Vol] 5.5 G/dL Invalid Interpretation Code 5.7 - 8.2 G/dL AH ADM SS RBC (Bld) [#/Vol] 2.72 106/mcL Invalid Interpretation Code 4.10 - 5.30 10^6/mcL AH Remisol SS Sodium [Moles/Vol] 137 mmol/L Invalid Interpretation Code 136 - 145 mEq/L AH ADM SS Urea nitrogen [Mass/Vol] 18.0 mg/dL Invalid Interpretation Code 8.0 - 22.0 mg/dL AH ADM SS Urea nitrogen/Creatinine [Mass ratio] 17.8 ratio Invalid Interpretation Code 10.0 - 22.0 ratio AH ADM SS WBC (Bld) [#/Vol] 14.80 103/mcL Invalid Interpretation Code 4.50 - 10.80 10^3/mcL AH Remisol SS LABORATORYOrdered By: Estefania Gabriel on 01-28-2022 RBC Product Ready Not Done (01/28/22 2:06 PM) Invalid Interpretation Code BB Manual SS LABORATORYOrdered By: Geovanny Irby on 01-28-2022 ABO and Rh group Nom (Bld) Blood group O Rh(D) positive Invalid Interpretation Code BB Auto SS Blood group antibody screen Ql NEG (01/28/22 9:26 AM) Invalid Interpretation Code AH BB Auto SS LABORATORYOrdered By: Salma Case on 01-17-2022 ABO and Rh group Nom (Bld) Blood group O Rh(D) positive Invalid Interpretation Code AH BB Auto SS Blood group antibody screen Ql NEG (01/17/22 1:45 PM) Invalid Interpretation Code AH BB Auto SS LABORATORYOrdered By: SYSTEM SYSTEM on 01-17-2022 Albumin BCP dye [Mass/Vol] 4.1 G/dL Invalid Interpretation Code 3.2 - 4.8 G/dL AH ADM SS Albumin/Globulin [Mass ratio] 1.3 {ratio} Invalid Interpretation Code 0.9 - 1.6 ratio AH ADM SS ALP [Catalytic activity/Vol] 106 U/L Invalid Interpretation Code 38 - 126 U/L AH ADM SS ALT No additional P-5'-P [Catalytic activity/Vol] 26 U/L Invalid Interpretation Code 10 - 49 U/L AH ADM SS AST [Catalytic activity/Vol] 28 U/L Invalid Interpretation Code 8 - 34 U/L AH ADM SS Basophils (Bld) [#/Vol] 0.00 103/mcL Invalid Interpretation Code 0.00 - 0.27 10^3/mcL AH Remisol SS Basophils/100 WBC (Bld) 0.7 % Invalid Interpretation Code 0.0 - 2.5 % AH Remisol SS Bilirubin [Mass/Vol] 0.50 mg/dL Invalid Interpretation Code 0.20 - 1.20 mg/dL AH ADM SS Calcium [Mass/Vol] 9.4 mg/dL Invalid Interpretation Code 8.7 - 10.4 mg/dL AH ADM SS Chloride [Moles/Vol] 106 mmol/L Invalid Interpretation Code 98 - 110 mEq/L AH ADM SS CO2 [Moles/Vol] 27 mmol/L Invalid Interpretation Code 22 - 32 mEq/L AH ADM SS Creatinine [Mass/Vol] 0.84 mg/dL Invalid Interpretation Code 0.50 - 1.20 mg/dL AH ADM SS Electrolyte Balance 4.0 mEq/L Invalid Interpretation Code 4.0 - 15.0 mEq/L AH ADM SS Eosinophils (Bld) [#/Vol] 0.20 103/mcL Invalid Interpretation Code 0.00 - 0.65 10^3/mcL AH Remisol SS Eosinophils/100 WBC (Bld) 3.5 % Invalid Interpretation Code 0.0 - 6.0 % AH Remisol SS Erythrocyte distribution width (RBC) [Ratio] 14.0 % Invalid Interpretation Code 11.5 - 15.5 % AH Remisol SS GFR/1.73 sq M.predicted among blacks MDRD (S/P/Bld) [Vol rate/Area] ml/min/1.73sqm Invalid Interpretation Code AH Chemistry S GFR/1.73 sq M.predicted among non-blacks MDRD (S/P/Bld) [Vol rate/Area] ml/min/1.73sqm Invalid Interpretation Code Chemistry S Globulin 3.1 G/dL Invalid Interpretation Code 1.5 - 3.8 G/dL ADM SS Glucose [Mass/Vol] 81 mg/dL Invalid Interpretation Code 70 - 110 mg/dL ADM SS Hematocrit (Bld) [Volume fraction] 36.0 % Invalid Interpretation Code 34.0 - 46.0 % Remisol SS Hemoglobin (Bld) [Mass/Vol] 12.4 G/dL Invalid Interpretation Code 12.0 - 16.0 G/dL AH Remisol SS Lymphocytes (Bld) [#/Vol] 2.10 103/mcL Invalid Interpretation Code 0.90 - 4.32 10^3/mcL AH Remisol SS Lymphocytes/100 WBC (Bld) 30.7 % Invalid Interpretation Code 20.0 - 40.0 % AH Remisol SS MCH (RBC) [Entitic mass] 30.6 pg Invalid Interpretation Code 27.0 - 33.0 pg AH Remisol SS MCHC (RBC) [Mass/Vol] 34.5 G/dL Invalid Interpretation Code 32.0 - 36.0 G/dL AH Remisol SS MCV (RBC) [Entitic vol] 88.8 fL Invalid Interpretation Code 80.0 - 99.0 fL AH Remisol SS Monocytes (Bld) [#/Vol] 0.60 103/mcL Invalid Interpretation Code 0.09 - 1.40 10^3/mcL AH Remisol SS Monocytes/100 WBC (Bld) 8.7 % Invalid Interpretation Code 2.0 - 13.0 % AH Remisol SS Neutrophils (Bld) [#/Vol] 3.90 103/mcL Invalid Interpretation Code 2.25 - 8.10 10^3/mcL AH Remisol SS Neutrophils/100 WBC (Bld) 56.4 % Invalid Interpretation Code 50.0 - 75.0 % AH Remisol SS Platelet mean volume (Bld) [Entitic vol] 7.0 fL Invalid Interpretation Code 6.6 - 10.5 fL AH Remisol SS Platelets (Bld) [#/Vol] 312 103/mcL Invalid Interpretation Code 150 - 450 10^3/mcL AH Remisol SS Potassium [Moles/Vol] 4.0 mmol/L Invalid Interpretation Code 3.5 - 5.0 mEq/L AH ADM SS Protein [Mass/Vol] 7.2 G/dL Invalid Interpretation Code 5.7 - 8.2 G/dL AH ADM SS RBC (Bld) [#/Vol] 4.05 106/mcL Invalid Interpretation Code 4.10 - 5.30 10^6/mcL AH Remisol SS Sodium [Moles/Vol] 137 mmol/L Invalid Interpretation Code 136 - 145 mEq/L ADM SS Urea nitrogen [Mass/Vol] 18.0 mg/dL Invalid Interpretation Code 8.0 - 22.0 mg/dL ADM SS Urea nitrogen/Creatinine [Mass ratio] 21.4 ratio Invalid Interpretation Code 10.0 - 22.0 ratio AH ADM SS WBC (Bld) [#/Vol] 7.00 103/mcL Invalid Interpretation Code 4.50 - 10.80 10^3/mcL Remisol SS Basophil percentageon 2021 Chloride [Moles/Vol] 106 mmol/L 98-[address] [facility] Work Phone: Cholesterol [Mass/Vol] 180 mg/dL <200 [place] [facility] Work Phone: Comment on above: <200 mg/dL Desirable 200-240 mg/dL Borderline >240 mg/dL High Risk Glucose [Mass/Vol] 85 mg/dL 74-106 [place] [facility] Work Phone: Potassium [Moles/Vol] 4.5 mmol/L 3.5-5.1 [address] [facility] Work Phone: Sodium [Moles/Vol] 139 mmol/L 136-145 [place] [facility] Work Phone: Triglyceride [Mass/Vol] 250 mg/dL [place] [facility] Work Phone: Comment on above: The drugs N-Acetylcy steine and Metamizole may falsely depress this assay.Serum Triglycerides Reference Interval Normal <150 mg/dL Borderline high 150 - 199 mg/dL High 200 - 499 mg/dL Very High > or = 500 mg/dL Laboratory - Chemistry and C hemistry - challengeon 01-01-2022 ALT [Catalytic activity/Vol] 30 U/L 13-56 [facility] Work Phone: CO2 [Moles/Vol] 28.0 mmol/L 21.0-32.0 [facility] Work Phone: Urea nitrogen/Creatinine [Mass ratio] 22.7 mg/mg 10-20 [facility] Work Phone: No Panel Informationon 01-01 Estimated GFR (MDRD) Amer 85 mL/min >60 [facility] Work Phone: Comment on above: GFR Calc Estimated GFR (MDRD) Non-Af Amer 70 mL/min >60 [facility] Work Phone: Comment on above: Non- GFR Calc Serum or plasma calcium raghu urement (mass/volume)on 01-01-2022 Calcium [Mass/Vol] 9.2 mg/dL 8.5-10.1 [facility] Work Phone: Serum or plasma cholesterol in HDL measurement (mass/volume)on 01-01-2022 Cholesterol in HDL [Mass/Vol] 46 mg/dL [facility] Work Phone: Comment on above: The drugs N-Acetylcy steine and Metamizole may falsely depress this assay. Reference Range HDL <40 mg/dL Low HDL Cholesterol HDL >or= 60 mg/dL High HDL Cholesterol Serum or plasma cholesterol in VLDL measurement (mass/volume)on 01-01-2022 Cholesterol in VLDL [Mass/Vol] 50 mg/dL 5-40 [facility] Work Phone: Serum or plasma creatinine m easurement (mass/volume)on 01-01-2022 Creatinine [Mass/Vol] 0.88 mg/dL 0.55-1.02 [facility] Work Phone: Comment on above: The validity of the calculated GFR & GFRAA in patients over 70 years has not been determined. Clinical correlation is essential. Serum or plasma low density lipoprotein (LDL) cholesterol measurement (mass/volume)on 01-01-2022 Cholesterol in LDL [Mass/Vol] 84 mg/dL 0-130 [facility] Work Phone: Serum or plasma urea nitroge n measurement (mass/volume)on 01-01-2022 Urea nitrogen [Mass/Vol] 20 mg/dL 7-18 [facility] Work Phone: Thin prep Papanicolaou smear with manual screeningon 01-01-2022 Thin prep Papanicolaou smear with manual screening 25 U/L 15-37 [facility] Work Phone: Thin prep Papanicolaou smear with manual screening 5 5-15 [facility] Work Phone: Vital Signs Date Time Vital Sign Value Performing Clinician Faci lity 01-31-2022 14:33-0400 Body temperature 98.96 [degF] CELINA MAX MD [facility] 01-31-2022 14:33-0400 Diastolic blood pressure 73 mm[Hg] CELINA MAX MD [facility] 01-31-2022 14:33-0400 Heart rate 83 /min CELINA MAX MD [facility] 01-31-2022 14:33-0400 Reason For Taking VItal Signs CELINA MAX MD [facility] 01-31-2022 14:33-0400 Respiratory rate 16 /min CELINA MAX MD [facility] 01-31-2022 14:33-0400 Systolic blood pressure 121 mm[Hg] CELINA MAX MD [facility] 01-31-2022 07:45-0400 Body temperature 98.24 [degF] CELINA MAX MD [facility] 01-31-2022 07:45-0400 Diastolic blood pressure 79 mm[Hg] CELINA MAX MD [facility] 01-31-2022 07:45-0400 Heart rate 83 /min CELINA MAX MD [facility] 01-31-2022 07:45-0400 Respiratory rate 18 /min CELINA MAX MD [facility] 01-31-2022 07:45-0400 Systolic blood pressure 123 mm[Hg] CELINA MAX MD [facility] 01-30-2022 14:51-0400 Body temperature 98.6 [degF] CELINA MAX MD [facility] 01-30-2022 14:51-0400 Diastolic blood pressure 69 mm[Hg] CELINA MAX MD [facility] 01-30-2022 14:51-0400 Heart rate 82 /min CELINA MAX MD [facility] 01-30-2022 14:51-0400 Reason For Taking VItal Signs CELINA MAX MD [facility] 01-30-2022 14:51-0400 Respiratory rate 18 /min CELINA MAX MD [facility] 01-30-2022 14:51-0400 Signs/Symptoms Transfusion Reaction CELINA MAX MD [facility] 01-30-2022 14:51-0400 Systolic blood pressure 120 mm[Hg] CELINA MAX MD [facility] 01-30-2022 13:51-0400 Signs/Symptoms Transfusion Reaction CELINA MAX MD [facility] 01-30-2022 13:49-0400 Signs/Symptoms Transfusion Reaction No CELINA MAX MD [facility] 01-30-2022 11:43-0400 Reason For Taking VItal Signs CELINA MAX MD [facility] 01-29-2022 00:10-0400 Diastolic Blood Pressure NBP 69 1 CELINA MAX MD [facility] 01-29-2022 00:10-0400 Systolic Blood Pressure NBP 114 1 CELINA MAX MD [facility] 01-28-2022 19:52-0400 Body height 160 cm CELINA MAX MD [facility] 01-28-2022 19:52-0400 Body weight 137.4 kg CELINA MAX MD [facility] 01-28-2022 19:52-0400 Body weight 53.67 kg/m2 CELINA MAX MD [facility] 01-28-2022 19:51-0400 Body temperature 98.24 [degF] CELIAN MAX MD [facility] 01-28-2022 19:51-0400 Diastolic Blood Pressure NBP 63 1 CELINA MAX MD [facility] 01-28-2022 19:51-0400 Heart rate 69 /min CELINA MAX MD [facility] 01-28-2022 19:51-0400 Systolic Blood Pressure NBP 105 1 CELINA MAX MD [facility] 01-28-2022 18:56-0400 Body temperature 98.06 [degF] CELINA MAX MD [facility] 01-28-2022 18:56-0400 Diastolic Blood Pressure NBP 59 1 CELINA MAX MD [facility] 01-28-2022 18:56-0400 Heart rate 70 /min CELINA MAX MD [facility] 01-28-2022 18:56-0400 Mean blood pressure 71 mm[Hg] CELINA MAX MD [facility] 01-28-2022 18:56-0400 Systolic Blood Pressure NBP 108 1 CELINA MAX MD [facility] 01-28-2022 18:50-0400 Body temperature 98.06 [degF] CELINA MAX MD [facility] 01-28-2022 18:50-0400 Heart rate 71 /min CELINA MAX MD [facility] 01-28-2022 18:50-0400 Mean blood pressure 65 mm[Hg] CELINA MAX MD [facility] 01-28-2022 18:33-0400 Mean blood pressure 64 mm[Hg] CELINA MAX MD [facility] 01-28-2022 17:11-0400 Mean blood pressure 48 mm[Hg] CELINA MAX MD [facility] 01-28-2022 16:45-0400 Body temperature 96.98 [degF] CELINA MAX MD [facility] 01-28-2022 16:35-0400 Body temperature 96.91 [degF] CELINA MAX MD [facility] 01-28-2022 16:30-0400 Body temperature 96.71 [degF] CELINA MAX MD [facility] 01-28-2022 09:14-0400 Body height 160 cm CELINA MAX MD [facility] 01-28-2022 09:14-0400 Body weight 137.4 kg CELINA MAX MD [facility] 01-28-2022 09:14-0400 Heart rate 80 /min CELINA MAX MD [facility] 01-28-2022 09:14-0400 Mean blood pressure 106 mm[Hg] CELINA MAX MD [facility] 01-17-2022 13:45-0400 Body height 160 cm CELINA MAX MD [facility] 01-17-2022 13:45-0400 Body temperature 99.14 [degF] CELINA MAX MD [facility] 01-17-2022 13:45-0400 Body weight 141.8 kg CELINA MAX MD [facility] 01-17-2022 13:45-0400 Body weight 55.39 kg/m2 CELINA MAX MD [facility] 01-17-2022 13:45-0400 diastolic 72 mm[Hg] CELINA MAX MD [facility] 01-17-2022 13:45-0400 Heart rate 84 /min CELINA MAX MD [facility] 01-17-2022 13:45-0400 systolic 118 mm[Hg] CELINA MAX MD [facility] Encounters Encounter Date Encounter Type Care Provider Facility Start: 03-14-2025 ambulatory Ana Turpin NP Facility :[facility] Start: 08-02-2024 End: 08-02-2024 ambulatory Natty Armas Facility:[facility] Start: 03-02-2024 End: 03-02-2024 ambulatory ANA JOHN MD Facility:A Start: 03-02-2024 End: 03-02-2024 Patient encounter procedure ANA JOHN MD [facility] Start: 09-24-2023 End: 09-24-2023 ambulatory FRANCISCO MCLEAN [employer] Facility:[facility] Start: 06-29-2023 End: 06-29-2023 ambulatory [facility] Work Phone: Start: 06-29-2023 End: 06-29-[address] [facility] Work Phone: Start: 05-07-2023 End: 05-07-2023 ambulatory CELINA MAX MD Facility:A Start: 01-01-2023 End: 01-01-2023 Patient encounter procedure CELINA MAX MD [facility] Start: 10-02-2022 End: 10-02-2022 Patient encounter procedure CELINA MAX MD [facility] Start: 07-17-2022 End: 07-17-2022 ambulatory [facility] Work Phone: Start: 07-17-2022 End: 07-17-2022 Patient encounter procedure [facility] Start: 07-03-2022 End: 07-03-2022 Patient encounter procedure CELINA MAX MD [facility] Start: 06-30-2022 End: 06-30-2022 ambulatory [facility] Work Phone: Start: 06-30-2022 End: 06-30-2022 Patient encounter procedure [facility] Start: 01-28-2022 End: 01-31-2022 Evaluation and management of inpatient CELINA MAX MD [facility] Start: 01-17-2022 End: 01-17-2022 Admission to establishment CELINA MAX MD [facility] Start: 01-09-2022 End: 01-09-2022 Patient encounter procedure CELINA MAX MD [facility] Start: 01-01-2022 End: 01-01-2022 Patient encounter procedure [facility], [facility] Start: 12-24-2021 End: 12-24-2021 Patient encounter procedure [facility], [place] [facility] Start: 11-23-2021 End: 11-23-2021 Patient encounter procedure [facility]-Ultrasound, [facility] Procedures Date Procedure Procedure Detail Performing Clinician Start: 07-17-2022 Screening mammography Start: 01-28-2022 Abdominal hysterectomy ANA JOHN MD Start: 01-28-2022 Examination under anesthesia (qualifier value) CELINA MAX MD Comment on above: EXPLORATORY LAPAROTO MY, TOTAL ABDOMINAL HYSTERECTOMY, BILATERAL SALPINGO-OOPHORECTOMY, PELVIC LYMPH NODE DISSECTION, MEDICALLY NECESSARY NON-COSMETIC PANNICULECTOMY Start: 11-23-2021 Transvaginal echography section CELINA JEFFERSON MD Colonoscopy CELINA Morales Decompression of med kang nerve CELINA MAX MD Payers Date Payer Category Payer Self-pay [id number] 2023 Unknown [id number] 2023 Unknown [id number] 1965 Unknown [id number] [id number] 1965 Unknown [id number] [id number] 1965 Unknown [id number] [id number] Unknown [id number] Unknown [id number] [id number] [id number] Unknown [id number] [id number] Social History Date Type Detail Facility Start: 04-17-2014 Tobacco smoking stat [facility] Unknown if ever smoked [facility] Start: 1965 Sex Assigned At Female W [facility] Start: 01-07-2022 Tobacco smoking status Never s moked tobacco (finding) [facility] Sex Assigned At Sex [facility] Functional Status Date Assessment Result Facility 01-31-2022 Functional Status [facility] spital 01-30-2022 Functional Status [facility] spital 01-30-2022 Functional Status [facility] 01-30-2022 Functional Status [facility] 01-29-2022 Functional Status [facility] 01-29-2022 Functional Status [facility] 01-29-2022 Functional Status [facility] 01-29-2022 Functional Status [facility] 01-29-2022 Functional Status [facility] 01-29-2022 Functional Status [facility] 01-28-2022 Functional Status [facility] 01-28-2022 Functional Status [facility] 01-28-2022 Functional Status [facility] 01-17-2022 Functional Status [facility] Mental Status Date Assessment Result Facility 01-31-2022 Mental Status [facility] 01-30-2022 Mental Status [facility] 01-30-2022 Mental Status [facility] Clinical Notes 01-28-2022 to 01-31-2022 Note Date & Type Note Facility 01-31-2022 Hospital Discharg e instructions Patient Education 01/31/2022 15:19:09 Abdominal Hysterectomy Abdominal Hysterectomy Abdominal hysterectomy is a surgical procedure to remove the womb (uterus). The uterus is the muscular organ that houses a developing baby. This surgery may be done if: You have cancer. You have growths (tumors or fibroids) in the uterus. You have long-term (chronic) pain. You are bleeding. Your uterus has slipped down into your vagina (uterine prolapse). You have a condition in which the tissue that lines the uterus grows outside of its normal location (endometriosis). You have an infection in your uterus. You are having problems with your menstrual cycle. Depending on why you are having this procedure, you may also have other reproductive organs removed. These could include: The part of your vagina that connects with your uterus (cervix). The organs that make eggs (ovaries). The tubes that connect the ovaries to the uterus (fallopian tubes). Tell a health care provider about: Any allergies you have. All medicines you are taking, including vitamins, herbs, eye drops, creams, and cski-nrr-[id number] medicines. Any problems you or family members have had with anesthetic medicines. Any blood disorders you have. Any surgeries you have had. Any medical conditions you have. Whether you are or may be . What are the risks? Generally, this is a safe procedure. However, problems may occur, including: Bleeding. Infection. Allergic reactions to medicines or dyes. Damage to other structures or organs. Nerve injury. Decreased interest in sex or pain during sex. Blood clots that can break free and travel to your lungs. What happens before the procedure? Staying hydrated Follow instructions from your health care provider about hydration, which may include: Up to 2 hours before the procedure you may continue to drink clear liquids, such as water, clear fruit juice, black coffee, and plain tea Eating and drinking restrictions Follow instructions from your health care provider about eating and drinking, which may include: 8 hours before the procedure stop eating heavy meals or foods such as meat, fried foods, or fatty foods. 6 hours before the procedure stop eating light meals or foods, such as toast or cereal. 6 hours before the procedure stop drinking milk or drinks that contain milk. 2 hours before the procedure stop drinking clear liquids. Medicines Ask your health care provider about: ?Changing or stopping your regular medicines. This is especially important if you are taking diabetes medicines or blood thinners. ?Taking medicines such as aspirin and ibuprofen. These medicines can thin your blood. Do not take these medicines before your procedure if your health care provider instructs you not to. You may be given antibiotic medicine to help prevent infection. Take it as told by your health care provider. You may be asked to take laxatives to prevent constipation. General instructions Ask your health care provider how your surgical site will be marked or identified. You may be asked to shower with a germ-killing soap. Plan to have someone take you home from the hospital. Do not use any products that contain nicotine or tobacco, such as cigarettes and e-cigarettes. If you need help quitting, ask your health care provider. You may have an exam or testing. You may have a blood or urine sample taken. You may need to have an enema to clean out your rectum and lower colon. This procedure can affect the way you feel about yourself. Talk to your health care provider about the physical and emotional changes this procedure may cause. What happens during the procedure? To lower your risk of infection: ?Your health care team will wash or sanitize their hands. ?Your skin will be washed with soap. ?Hair may be removed from the surgical area. An IV tube will be inserted into one of your veins. You will be given one or more of the following: ?A medicine to help you relax (sedative). ?A medicine to make you fall asleep (general anesthetic). Tight-fitting (compression) stockings will be placed on your legs to promote circulation. A thin, flexible tube (catheter) will be inserted to help drain your urine. The surgeon will make a cut (incision) through the skin in your lower belly. The incision may go fdwm-qo-yjnl or up-and-down. The surgeon will move aside the body tissue that covers your uterus. The surgeon will then carefully take out your uterus along with any of the other organs that need to be removed. Bleeding will be controlled with clamps or sutures. The surgeon will close your incision with stitches (sutures), skin glue, or adhesive strips. A bandage (dressing) will be placed over the incision. The procedure may vary among health care providers and hospitals. What happens after the procedure? You will be given pain medicine as needed. Your blood pressure, heart rate, breathing rate, and blood oxygen level will be monitored until the medicines you were given have worn off. You will need to stay in the hospital to recover for one to two days. Ask your health care provider how long you will need to stay in the hospital after your procedure. You may have a liquid diet at first. You will most likely return to your usual diet the day after surgery. You will still have the urinary catheter in place. It will likely be removed the day after surgery. You may have to wear compression stockings. These stockings help to prevent blood clots and reduce swelling in your legs. You will be encouraged to walk as soon as possible. You will also use a device or do breathing exercises to keep your lungs clear. You may need to use a sanitary napkin for vaginal discharge. Summary Abdominal hysterectomy is a surgical procedure to remove the womb (uterus). The uterus is the muscular organ that houses a developing baby. This procedure can affect the way you feel about yourself. Talk to your health care provider about the physical and emotional changes this procedure may cause. You will be given medicines for pain after the procedure. You will need to stay in the hospital to recover. Ask your health care provider how long you will need to stay in the hospital after your procedure. This information is not intended to replace advice given to you by your health care provider. Make sure you discuss any questions you have with your health care provider. Document Released: 09/26/2014 Document Revised: 10/26/2019 Document Reviewed: 09/09/2017 [email or web address] Patient Education [employer]. Follow Up Care 01/09/2022 10:49:35 With:CELINA MAX MD, [facility] Address: [address] [place] [address] [place] [address] [phone] When:02/13/2022 11:00:00 Comments:Follow-up with Dr. Max in the office on February 13, 2022 at 11:00 AM for your postoperative visit. [facility] 01-28-2022 Evaluation + Plan note Extrac tiara from: Title:[facility] H&P Author:ESPINOZA BANUELOS DO Date: 01/28/22 [facility] H&P: DATE OF ADMISSION: 01/24/22 ATTENDING PHYSICIAN: Dr. Max DIAGNOSIS: endometrial cancer HISTORY OF PRESENT ILLNESS: 56 yo woman with an episode of post-menopausal bleeding 2 weeks ago. TVUS showed 11 mm thickened endometrial stripe. EMB in office showed Endometrial adenocarcinoma, FIGO Grade I. The patient was then referred to Dr. Max for further management of her endometrial cancer. She denies fevers, chills, chest pain, shortness of breath. No coughing or wheezing. No headaches or dizziness. No change in vision or hearing. No new skin rashes. No hot flashes or easy bruising. No neuropathy. No nausea or vomiting. No bloating or pain. No diarrhea or constipation. No vaginal bleeding or rectal bleeding. No hematuria or dysuria. Appetite intact. Energy level good. Performance status 0. PAST MEDICAL HISTORY: Abdominal pannus Endometrial cancer, grade I HTN (hypertension) High cholesterol Obesity, morbid PAST SURGICAL HISTORY: delivery x1 Carpal tunnel release COPY EDITOR HISTORY: . 1 and 1 C/S. 1 year history of OCP use. Menarche 12. Menopause at 50. No hx of abnormal pap smears-last in 2020. Denies hx of HRT. Mammogram up to date. Colonoscopy up to date. Denies hx of STIs. FAMILY HISTORY: Breast Cancer in Maternal Aunt-Age 70s. Father with lung cancer in his 80s. Denies family hx of endometrial, cervical, ovarian, colon, and pancreatic cancer. SOCIAL HISTORY: Patient denies smoking or illicit drug use. Admits to occasional alcohol use. MEDICATIONS: Medication List Active Medications Ordered cefOXitin: 2 gram(s), 100 mL/hr, IV Piggyback, PREOP pharm. heparin: 5,000 unit(s), 1 mL, Subcutaneous, PREOP pharm. Lactated Ringers Infusion 1,000 mL: 20 mL/hr, Intravenous. lidocaine: 2.5 mg, 0.25 mL, Intradermal, PREOP pharm. lidocaine: 2.5 mg, 0.25 mL, Intradermal, prep pharm. metroNIDAZOLE: 500 mg, 100 mL, 100 mL/hr, IV Piggyback, PREOP pharm. Documented aspirin: 81 mg, 1 tab(s), Oral, Daily, 0 Refill(s). atorvastatin: 20 mg, 1 tab(s), Oral, qHS. biotin: 10 mg, Oral, qDay. hydroCHLOROthiazide: 12.5 mg, 1 cap(s), Oral, qDay, 0 Refill(s). lisinopril: 20 mg, 1 tab(s), Oral, qDay, 90 tab(s), 0 Refill(s). Medications Inactivated in the Last 72 Hours No medications found. ALLERGIES: Atenolol REVIEW OF SYSTEMS: See HPI for pertinent positives. A full review of systems was conducted and found to be otherwise negative. PHYSICAL EXAMINATION: Vital Signs: pending General: Well appearing, in no acute distress. HEENT: No conjunctival cystitis. Normal hearing. Normal mucosa. Lymphatic: No cervical, supraclavicular, or axillary lymphadenopathy. Breasts: Deferred. Cardiac: Regular rate and rhythm. Respiratory: Airways clear. Abdomen: Soft, non-tender, nondistended, no masses, no hernias, normal bowel sounds. Genitourinary: deferred Extremities: Warm. No cyanosis, clubbing, or edema. Musculoskeletal: Normal range of motion. Psychiatric: Normal affect and demeanor. LABS: 01/17: 7>12.4/30<312, K 4, Cr 0.84, AST/ALT DIAGNOSTICS/IMAGING: TVUS per documentation: 9 cm Uterine length. Endometrial thickness 11 mm PATHOLOGY: 12/24/21 EMB: Endometrial adenocarcinoma, endometrioid type, FIGO grade 1. ASSESSMENT AND PLAN: This is a 56-year-old with endometrial cancer presenting for exam under anesthesia, exploratory laparotomy, total abdominal hysterectomy, bilateral salpingo-oophorectomy, pelvic lymph node dissection, panniculectomy. All risks, benefits and alternatives were discussed with the patient. Risks include, but are not limited to, risk of bleeding to the point of transfusion, infection, injury to surrounding tissue, VTEs, ICU admission and . Patient aware and consented. Addendum by CELINA MAX on January 28, 2022 12:44 EDT Temperature Temporal Artery: 35.9 DegC A pical Heart Rate: 80 bpm Respiratory Rate: 18 br/min Systolic Blood Pressure: 144 mmHg High Diastolic Blood Pressure: 87 mmHg Mean Arterial Pressure: 106 mmHg Systolic Blood Pressure NBP: 128 mmHg Diastolic Blood Pressure NBP: 84 mmHg WBC: 7 10^3/mcL (01/17/22 13:45:00) RBC: 4.05 10^6/mcL Low (01/17/22 13:45:00) Hgb: 12.4 G/dL (01/17/22 13:45:00) Hct: 36 % (01/17/22 13:45:00) MCV: 88.8 fL (01/17/22 13:45:00) MCH: 30.6 pg (01/17/22 13:45:00) MCHC: 34.5 G/dL (01/17/22 13:45:00) RDW: 14 % (01/17/22 13:45:00) Platelet: 312 10^3/mcL (01/17/22 13:45:00) MPV: 7 fL (01/17/22 13:45:00) Neutrophil %: 56.4 % (01/17/22 13:45:00) Lymphocyte %: 30.7 % (01/17/22 13:45:00) Monocyte %: 8.7 % (01/17/22 13:45:00) Eosinophil %: 3.5 % (01/17/22 13:45:00) Basophil %: 0.7 % (01/17/22 13:45:00) Neutrophil, Absolute: 3.9 10^3/mcL (01/17/22 13:45:00) Lymphocyte, Absolute: 2.1 10^3/mcL (01/17/22 13:45:00) Monocyte, Absolute: 0.6 10^3/mcL (01/17/22:45:00) Eosinophil, Absolute: 0.2 10^3/mcL (01/17/22 13:45:00) Basophil, Absolute: 0 10^3/mcL (01/17/22:45:00) Glucose Level: 81 mg/dL (01/17/22:45:00) Sodium Level: 137 mEq/L (01/17/22:45:00) Potassium Level: 4 mEq/L (01/17/22:45:00) Chloride: 106 mEq/L (01/17/22:45:00) CO2: 27 mEq/L (01/17/22:45:00) Electrolyte Balance: 4 mEq/L (01/17/22:45:00) BUN: 18 mg/dL (01/17/22:45:00) Creatinine Lvl (s): 0.84 mg/dL (01/17/22:45:00) BUN/Creatinine Ratio: 21.4 ratio (01/17/22:45:00) Calcium Lvl: 9.4 mg/dL (01/17/22:45:00) Total Protein: 7.2 G/dL (01/17/22 13:45:00) Albumin Level: 4.1 G/dL (01/17/22:45:00) Globulin: 3.1 G/dL (01/17/22:45:00) A/G Ratio: 1.3 ratio (01/17/22:45:00) Bili Total: 0.5 mg/dL (01/17/22 13:45:00) Alk Phos: 106 U/L (01/17/22:45:00) AST/SGOT: 28 U/L (01/17/22 13:45:00) ALT/SGPT: 26 U/L (01/17/22 13:45:00) GFR Non-: >60 (01/17/22:45:00) GFR : >60 (01/17/22:45:00) ABO/Rh Interp: O POS (01/28/22 09:26:00) ABSC Interp (Gel): NEG ABSC Biorad (01/28/22 09:26:00) I personally saw and evaluated the patient on the day of surgery in the pre-operative holding area. I have reviewed the above documentation and clinical decision making and I agree. Vital signs and bloodwork were reviewed. Physical examination unchanged since the last time I saw her in the office. We reviewed the plan for the surgery, including the risks and indications for the procedure. All of her questions were answered. CELINA MAX MD FACOG Future Appointments Appointment Date:02/13/2022 11:00:00 AM Scheduled Provider:CELINA MXA MD Location:[facility] Appointment Type:SO OV Post Op Future Scheduled Tests Radiology* XR Chest 2 Views (PA & Lateral) 01/17/22 [facility] evaluation + Plan note Future Appointments Appointment Date:02/13/2022 11:00:00 AM Scheduled Provider:CELINA MAX MD Location:[facility] Appointment Type:SO OV Post Op [facility] evaluation + Plan note Future Appointments Appointment Date:02/13/2022 11:00:00 AM Scheduled Provider:CELINA MAX MD Location:[facility] Appointment Type:SO OV Post Op Future Scheduled Tests Radiology* XR Chest 2 Views (PA & Lateral) 01/17/22 [facility] evaluation + Plan note Future Appointments Appointment Date:10/02/2022 03:30:00 PM Scheduled Provider:CELINA MAX MD Location:[facility] Appointment Type:SO OV Follow Up Future Scheduled Tests Radiology* MA Mammo Screening Bilateral w/ Yeyo 07/03/22 * XR Chest 2 Views (PA & Lateral) 01/17/22 [facility] evaluation + Plan note Future Appointments Appointment Date:01/01/2023 03:20:00 PM Scheduled Provider:CELINA MAX MD Location:[facility] Appointment Type:SO OV Follow Up Future Scheduled Tests Radiology* MA Mammo Screening Bilateral w/ Yeyo 07/03/22 [facility] Evaluation + Plan note Future Appointments Appointment Date:05/07/2023 03:40:00 PM Scheduled Provider:CELINA MAX MD Location:[facility] Appointment Type:SO OV Follow Up Future Scheduled Tests Radiology* MA Mammo Screening Bilateral w/ Yeyo 07/03/22 [facility] Evaluation + Plan note Future Appointments Appointment Date:08/25/2024 03:40:00 PM Scheduled Provider: Location:[facility] Appointment Type:SO OV Follow Up Future Scheduled Tests Radiology* MA Mammo Screening Bilateral w/ Yeyo 03/02/24 [facility] Evaluation noteNo assessment information available [facility] Work Phone: Hospital course Narrative No data available for this section [facility] Hospital Discharge instructions No data available for this section [facility] Progress note No data available for this section [facility] Chief Complaint and Reason for Visit Chief Complaint POST-MENOPAUSAL BLEE DING Chief Complaint SCREENING Chief Complaint EORDER Advance Directives No Advanced Directives Records Found Advance Directive Response Recorded Date/ Time Advance Directives No April 17 9:24am Living Will No April 17, 2014 9:24am Power of Director Child Abuse Therapy No April 17 4 9:24am Summary Purpose Family History No Family History Records Found Additional Source Comments Goals (unrecognized section and content) Goals may be documented in a n alternate section No data available for this sectionGoals may be documented in an alternate section No data available for this section No data available for this section No data available for this sectionGoals may be documented in an alternate sectionGoals may be documented in an alternate section No data available for this section No data available for this sectionGoals may be documented in an alternate section No data available for this section Care Team (unrecognized sect ion and content) Team Status: Active Member Role Status Dates Dr. Natty Armas MD Family Provider Active Dr. Natty Armas MD Primary Care Provider Active Team Status: Inactive Member Role Status Dates Dr. Natty Armas MD Primary Care Prov ider, Attending Provider, Referring Provider Active Care Team (unrecognized sect ion and content) Care Team Personnel Name: NATTY ARMAS MD Member Role: Primary Care Physician Address: Address: [address] [place] [address] Name: CELINA MAX MD Position: P4 Oncology Provider Med Service: [facility] Infusion Therapy Member Role: Gynecologic Oncologist Address: Address: [address] [place] [address] [address] Care Team Related Persons Name: JOSE PORTER Name: YANIQUE SIBLEY Care Team Personnel Name: NATTY ARMAS MD Member Role: Primary Care Physician Address: Address: [address] [place] [address] Name: CELINA MAX MD Position: P4 Oncology Provider Member Role: Gynecologic Oncologist Address: Address: [address] [place] [address] [address] Care Team Related Persons Name: JOSE PORTER Name: YANIQUE SIBLEY INFORMATION SOURCE (unrecogn ized section and content) DATE CREATED AUTHOR 03/14/2024 [facility] ([place]) DATE CREATED AUTHOR AUTHOR'S ORGANIZ ATION 03/09/2025 [facility] FOR RECORDS PERTAINING TO PATIENTS WHO ARE OR HAVE BEEN ENROLLED IN A CHEMICAL DEPENDENCY/SUBSTANCEABUSE PROGRAM, SOME INFORMATION MAY BE OMITTED. This clinical summary was aggregated from multiple sources. Caution should be exercised in using it in the provision of clinical care. This summary normalizes information from multiple sources, and as a consequence, information in this document may materially change the coding, format and clinical context of patient data. In addition, data may be omitted in some cases. CLINICAL DECISIONS SHOULD BE BASED ON THE PRIMARY CLINICAL RECORDS. [employer] [facility]. provides no warranty or guarantee of the accuracy or completeness of information in this document.
--- NOTE | 2025-03-14 07:32 | BD_ITS ---
PROCEDURE: DEXA BONE DENSITY STUDY 03/14/2025 REASON FOR EXAM: F, age 60 y/o . Postmenopausal. TECHNIQUE: DXA scan of sites with data reported below. REFERENCE LINKS: [facility] Adult Position[facility] COMPARISON: Prior study dated May 02, 2021. FINDINGS: BMD and T-SCORES Lumbar spine: 0.924 g/cm2, T-score -1.6 Levels: L1 through L4 Change from prior: Loss of 11%. Left femoral neck: 0.683 g/cm2, T-score -1.5 Femoral neck comparison data not recommended for monitoring change. Left total hip: 1.028 g/cm2, T-score 0.7 Change from prior: Improvement of 0.5%. Right femoral neck: 0.735 g/cm2, T-score -1.0 Femoral neck comparison data not recommended for monitoring change. Right total hip: 0.995 g/cm2, T-score 0.4 Change from prior: Loss of 8%. The World Health Organization has defined the following categories based on bone density: Normal bone density: T-score equal to or greater than -1.0 Osteopenia: T-score between -1.0 and -2.5 Osteoporosis: T-score equal to or less than -2.5 The patient does meet the pharmacological treatment recommendations for prevention of osteoporosis. BD/Dexa Bone Density Study IMPRESSION: OSTEOPENIA. Recommend follow-up as clinically warranted. Reading Location: [place] [id number]
== END | disposition home or self-care (01) ==
LOC: OPBD 07:26
PROVIDERS: PCP Family Medicine; Referring Provider Nurse Practitioner Family; Visit Provider Nurse Practitioner Family
DX: Z12.31 Encounter for screening mammogram for malignant neoplasm of breast (principal); Z78.0 Asymptomatic menopausal state
CPT/HCPCS: 77063; 77067; 77080

== ENCOUNTER → 2025-07-05 | Outpatient (CLI) | payer BC, SELFPAY ==
[2025-07-05 10:38] LABS: Microalbumin,Random Urine < 12.0 mg/L (<20 mg/L)
[2025-07-05 10:58] LABS: AST(SGOT) 24 U/L (<=31); Alanine Aminotransfer ALT/SGPT 16 U/L (<=34); Albumin, Serum 4.0 g/dL (3.4-4.8); Alkaline Phosphatase 82 U/L (35-104); Anion Gap 12 (5-15); BUN 16 mg/dL (4-19); BUN/Creat Ratio 15.5 RATIO (10-20); Calcium,Total 9.4 mg/dL (7.6-11.0); Carbon Dioxide 24.6 mmol/L (21.0-32.0); Chloride 102 mmol/L (98-108); Cholesterol 192 mg/dL (<=200); Globulin 3.0 g/dL (2.2-4.2); Glucose 95 mg/dL (70-99); Low Density Lipoprotein Calc. 104 mg/dL; Potassium 4.5 mmol/L (3.3-5.1); Triglycerides 208 mg/dL; Very Low Density Lipoprotein 42 mg/dL (5-40); cholesterol:hdl ratio screen 4.16
== END | disposition home or self-care (01) ==
LOC: MTLAB 07:06
PROVIDERS: PCP Family Medicine; Referring Provider Nurse Practitioner Family; Visit Provider Nurse Practitioner Family
DX: I10 Essential (primary) hypertension (principal); E78.00 Pure hypercholesterolemia, unspecified
CPT/HCPCS: 36415; 80053; 80061; 82043